=== PATIENT | female | born 1945 | race Caucasian/White ===

== ENCOUNTER → 2023-09-05 11:31 | Outpatient (REF) | payer MEDICARE, BC, SELFPAY ==
[2023-09-05 13:26] LABS: Blood Urea Nitrogen 37 mg/dl (7-17); Calcium 9.3 mg/dl (8.4-10.2); Carbon Dioxide 26 mmol/L (22-30); Chloride 93 mmol/L (98-107); Glucose 87 mg/dl (70-99); Potassium 4.4 mmol/L (3.5-5.1); Sodium 126 mmol/L (135-145); eGFR > 60.00
== END ==
LOC: OLABLV 11:31
PROVIDERS: ATTENDING PHYSICIAN Specialist; FAMILY PHYSICIAN Family Medicine
DX: E87.1 Hypo-osmolality and hyponatremia (principal)
CPT/HCPCS: 80048

== ENCOUNTER → 2023-09-22 08:46 | Outpatient (REF) | payer MEDICARE, BC, SELFPAY | LOC: PAVMRI 08:46 | PROVIDERS: ATTENDING PHYSICIAN Physician Assistant Surgical | DX: M47.812 Spondylosis without myelopathy or radiculopathy, cervical region (principal) | CPT/HCPCS: 72141 ==

== ENCOUNTER → 2023-10-03 09:34 | Outpatient (REF) | payer MEDICARE, BC, OTHER, SELFPAY ==
[2023-10-03 12:26] LABS: Blood Urea Nitrogen 36 mg/dl (7-17); Calcium 9.1 mg/dl (8.4-10.2); Carbon Dioxide 29 mmol/L (22-30); Chloride 95 mmol/L (98-107); Glucose 89 mg/dl (70-99); Potassium 4.5 mmol/L (3.5-5.1); Sodium 129 mmol/L (135-145); eGFR > 60.00
== END ==
LOC: OLABLV 09:34
PROVIDERS: ATTENDING PHYSICIAN Physician Assistant Surgical; FAMILY PHYSICIAN Family Medicine; REFERRING PHYSICIAN Specialist
DX: M25.512 Pain in left shoulder (principal); D64.9 Anemia, unspecified; E87.1 Hypo-osmolality and hyponatremia; I10 Essential (primary) hypertension
CPT/HCPCS: 36415; 73030; 80048

== ENCOUNTER → 2023-10-08 10:31 | Outpatient (REF) | payer MEDICARE, BC, OTHER, SELFPAY ==
[2023-10-08 11:05] LABS: C-Reactive Protein < 5.00 mg/L (0.0-10.00)
[2023-10-08 11:22] LABS: ALT (SGPT) 13 U/L (0-35); AST (SGOT) 23 U/L (14-36); Albumin 3.8 g/dl (3.5-5.0); Alkaline Phosphatase 60 U/L (38-126); Blood Urea Nitrogen 17 mg/dl (7-17); Calcium 8.9 mg/dl (8.4-10.2); Carbon Dioxide 24 mmol/L (22-30); Chloride 95 mmol/L (98-107); Glucose 83 mg/dl (70-99); Potassium 4.4 mmol/L (3.5-5.1); Sodium 126 mmol/L (135-145); Total Bilirubin 0.4 mg/dl (0.2-1.3); Total Protein 6.3 g/dl (6.3-8.2); eGFR > 60.00
[2023-10-08 11:38] LABS: % Basophils 0.6 % (0-2); % Eosinophils 1.4 % (0-6); % Immature Granulocytes 0.7 % (0-0.5); % Lymphocytes 41.8 % (20.5-51.1); % Monocytes 8.3 % (1.7-9.3); % Neutrophils 47.2 % (42.2-75.2); Absolute Basophils 0.1 10^3/uL (0-0.2); Absolute Eosinophils 0.2 10^3/uL (0-0.7); Absolute Immature Granulocytes 0.1 10^3/uL (0-0.05); Absolute Lymphocytes 4.8 10^3/uL (1.2-3.4); Absolute Neutrophils 5.4 10^3/uL (1.4-6.5); Hematocrit 34.1 % (37.0-47.0); Hemoglobin 11.8 g/dL (12.0-16.0); Mean Corp Hgb Conc. 34.6 g/dL (33.0-37.0); Mean Corpuscular Hgb 33.8 pg (27.0-31.0); Mean Corpuscular Volume 97.7 fL (81.0-99.0); Mean Platelet Volume 9.4 fL (7.4-10.4); Nucleated Red Blood Cells % 0 %; Platelet Count 269 10^3/uL (130-400); Red Blood Cell Count 3.49 10^6/uL (4.20-5.40); Red Cell Dist. Width 12.4 % (11.5-14.5); White Blood Cell Count 11.4 10^3/uL (4.8-10.8)
[2023-10-08 12:23] LABS: Erythrocyte Sed Rate 2 mm/hour (0-20)
== END ==
LOC: OLABLV 10:31
PROVIDERS: ATTENDING PHYSICIAN Family Medicine
DX: M06.9 Rheumatoid arthritis, unspecified (principal)
CPT/HCPCS: 36415; 80053; 85025; 85652; 86140

== ENCOUNTER → 2023-10-24 10:35 | Outpatient (REF) | payer BC, OTHER, MEDICARE, SELFPAY | LOC: HWRAD 10:35 | PROVIDERS: ATTENDING PHYSICIAN Specialist; FAMILY PHYSICIAN Family Medicine | DX: M25.512 Pain in left shoulder (principal) | CPT/HCPCS: 73200 ==

== ENCOUNTER → 2023-11-07 11:43 | Outpatient (REF) | payer MEDICARE, BC, OTHER, SELFPAY ==
[2023-11-07 12:43] LABS: % Basophils 0.7 % (0-2); % Eosinophils 1.5 % (0-6); % Immature Granulocytes 0.7 % (0-0.5); % Lymphocytes 39.5 % (20.5-51.1); % Monocytes 9.1 % (1.7-9.3); % Neutrophils 48.5 % (42.2-75.2); Absolute Basophils 0.1 10^3/uL (0-0.2); Absolute Eosinophils 0.2 10^3/uL (0-0.7); Absolute Immature Granulocytes 0.1 10^3/uL (0-0.05); Absolute Lymphocytes 4.5 10^3/uL (1.2-3.4); Absolute Neutrophils 5.5 10^3/uL (1.4-6.5); Mean Corp Hgb Conc. 33.3 g/dL (33.0-37.0); Mean Corpuscular Hgb 32.9 pg (27.0-31.0); Mean Corpuscular Volume 98.6 fL (81.0-99.0); Mean Platelet Volume 9.7 fL (7.4-10.4); Nucleated Red Blood Cells % 0 %; Platelet Count 289 10^3/uL (130-400); Red Blood Cell Count 3.65 10^6/uL (4.20-5.40); Red Cell Dist. Width 12.5 % (11.5-14.5); White Blood Cell Count 11.4 10^3/uL (4.8-10.8)
[2023-11-07 12:51] LABS: ALT (SGPT) 14 U/L (0-35); AST (SGOT) 23 U/L (14-36); Alkaline Phosphatase 60 U/L (38-126); Blood Urea Nitrogen 31 mg/dl (7-17); Calcium 9.7 mg/dl (8.4-10.2); Carbon Dioxide 25 mmol/L (22-30); Chloride 96 mmol/L (98-107); Glucose 87 mg/dl (70-99); Sodium 125 mmol/L (135-145); Total Bilirubin 0.5 mg/dl (0.2-1.3); Total Protein 6.6 g/dl (6.3-8.2); eGFR > 60.00
[2023-11-07 12:55] LABS: C-Reactive Protein < 5.00 mg/L (0.0-10.00)
[2023-11-07 12:59] LABS: Erythrocyte Sed Rate 13 mm/hour (0-20)
== END ==
LOC: OLABLV 11:43
PROVIDERS: ATTENDING PHYSICIAN Internal Medicine Rheumatology; FAMILY PHYSICIAN Family Medicine; REFERRING PHYSICIAN Internal Medicine
DX: E22.2 Syndrome of inappropriate secretion of antidiuretic hormone (principal); G89.29 Other chronic pain; M06.09 Rheumatoid arthritis without rheumatoid factor, multiple sites; M15.0 Primary generalized (osteo)arthritis; M19.012 Primary osteoarthritis, left shoulder; M50.30 Other cervical disc degeneration, unspecified cervical region; M51.36 Other intervertebral disc degeneration, lumbar region; M70.61 Trochanteric bursitis, right hip; M81.0 Age-related osteoporosis without current pathological fracture; R26.89 Other abnormalities of gait and mobility; S32.000D Wedge compression fracture of unspecified lumbar vertebra, subsequent encounter for fracture with routine healing; Z51.81 Encounter for therapeutic drug level monitoring
CPT/HCPCS: 36415; 80053; 85025; 85652; 86140

== ENCOUNTER → 2023-11-21 09:22 | Outpatient (REF) | payer MEDICARE, BC, OTHER, SELFPAY ==
[2023-11-21 12:26] LABS: HDL Cholesterol 79 mg/dl; LDL Cholesterol, Calculated 106 mg/dl; Total Cholesterol 200 mg/dl (50-199); Triglyceride 77 mg/dl (10-149); Very Low Density Lipoprotein 15 mg/dl (0-30)
[2023-11-21 12:56] LABS: TSH 2.35 uIU/ml (0.47-4.68)
== END ==
LOC: OLABLV 09:22
PROVIDERS: ATTENDING PHYSICIAN Family Medicine
DX: E03.9 Hypothyroidism, unspecified (principal)
CPT/HCPCS: 36415; 80061; 84443

== ENCOUNTER → 2023-12-05 12:32 | Outpatient (REF) | payer MEDICARE, BC, OTHER, SELFPAY ==
[2023-12-05 13:03] LABS: Blood Urea Nitrogen 32 mg/dl (7-17); Calcium 9.2 mg/dl (8.4-10.2); Carbon Dioxide 24 mmol/L (22-30); Chloride 99 mmol/L (98-107); Glucose 85 mg/dl (70-99); Potassium 4.2 mmol/L (3.5-5.1); Sodium 128 mmol/L (135-145); eGFR > 60.00
== END ==
LOC: OLABLV 12:32
PROVIDERS: ATTENDING PHYSICIAN Specialist
DX: E87.1 Hypo-osmolality and hyponatremia (principal)
CPT/HCPCS: 36415; 80048

== ENCOUNTER → 2024-02-04 12:17 | Outpatient (REF) | payer MEDICARE, BC, OTHER, SELFPAY | LOC: WDC 12:17 | PROVIDERS: ATTENDING PHYSICIAN Family Medicine | DX: Z12.31 Encounter for screening mammogram for malignant neoplasm of breast (principal) | CPT/HCPCS: 77063; 77067 ==

== ENCOUNTER → 2024-02-06 08:58 | Outpatient (REF) | payer MEDICARE, BC, OTHER, SELFPAY ==
[2024-02-06 09:21] LABS: Blood Urea Nitrogen 29 mg/dl (7-17); Calcium 8.8 mg/dl (8.4-10.2); Carbon Dioxide 26 mmol/L (22-30); Chloride 93 mmol/L (98-107); Glucose 84 mg/dl (70-99); Potassium 4.2 mmol/L (3.5-5.1); Sodium 125 mmol/L (135-145); eGFR > 60.00
== END ==
LOC: OLABLV 08:58
PROVIDERS: ATTENDING PHYSICIAN Specialist
DX: E87.1 Hypo-osmolality and hyponatremia (principal)
CPT/HCPCS: 36415; 80048

== ENCOUNTER → 2024-02-11 12:36 | Outpatient (REF) | payer MEDICARE, BC, SELFPAY ==
[2024-02-11 13:51] LABS: Blood Urea Nitrogen 28 mg/dl (7-17); Calcium 9.3 mg/dl (8.4-10.2); Carbon Dioxide 26 mmol/L (22-30); Chloride 94 mmol/L (98-107); Glucose 83 mg/dl (70-99); Sodium 128 mmol/L (135-145); eGFR > 60.00
== END ==
LOC: OLABLV 12:36
PROVIDERS: ATTENDING PHYSICIAN Specialist
DX: D64.9 Anemia, unspecified (principal); E87.1 Hypo-osmolality and hyponatremia; E78.2 Mixed hyperlipidemia; I10 Essential (primary) hypertension
CPT/HCPCS: 36415; 80048

== ENCOUNTER → 2024-03-26 10:52 | Outpatient (REF) | payer MEDICARE, BC, OTHER, SELFPAY ==
[2024-03-26 12:07] LABS: Blood Urea Nitrogen 26 mg/dl (7-17); Calcium 8.8 mg/dl (8.4-10.2); Carbon Dioxide 26 mmol/L (22-30); Chloride 96 mmol/L (98-107); Glucose 82 mg/dl (70-99); Potassium 4.3 mmol/L (3.5-5.1); Sodium 128 mmol/L (135-145); eGFR > 60.00
== END ==
LOC: OLABLV 10:52
PROVIDERS: ATTENDING PHYSICIAN Hospitalist
DX: E87.1 Hypo-osmolality and hyponatremia (principal)
CPT/HCPCS: 36415; 80048

== ENCOUNTER → 2024-03-31 12:10 | Outpatient (REF) | payer MEDICARE, BC, OTHER, SELFPAY ==
[2024-03-31 13:27] LABS: % Basophils 0.9 % (0-2); % Eosinophils 1.2 % (0-6); % Immature Granulocytes 0.7 % (0-0.5); % Lymphocytes 37.7 % (20.5-51.1); % Monocytes 9.2 % (1.7-9.3); % Neutrophils 50.3 % (42.2-75.2); Absolute Basophils 0.1 10^3/uL (0-0.2); Absolute Eosinophils 0.1 10^3/uL (0-0.7); Absolute Immature Granulocytes 0.1 10^3/uL (0-0.05); Absolute Lymphocytes 3.4 10^3/uL (1.2-3.4); Absolute Monocytes 0.8 10^3/uL (0.1-0.6); Absolute Neutrophils 4.6 10^3/uL (1.4-6.5); Hematocrit 37.7 % (37.0-47.0); Hemoglobin 12.5 g/dL (12.0-16.0); Mean Corp Hgb Conc. 33.2 g/dL (33.0-37.0); Mean Corpuscular Hgb 32.1 pg (27.0-31.0); Mean Corpuscular Volume 96.9 fL (81.0-99.0); Mean Platelet Volume 9.9 fL (7.4-10.4); Nucleated Red Blood Cells % 0 %; Platelet Count 310 10^3/uL (130-400); Red Blood Cell Count 3.89 10^6/uL (4.20-5.40); Red Cell Dist. Width 13.6 % (11.5-14.5); White Blood Cell Count 9.1 10^3/uL (4.8-10.8)
[2024-03-31 13:33] LABS: ALT (SGPT) 12 U/L (0-35); AST (SGOT) 21 U/L (14-36); Albumin 4.5 g/dl (3.5-5.0); Alkaline Phosphatase 69 U/L (38-126); Blood Urea Nitrogen 28 mg/dl (7-17); Calcium 9.8 mg/dl (8.4-10.2); Carbon Dioxide 25 mmol/L (22-30); Chloride 97 mmol/L (98-107); Glucose 94 mg/dl (70-99); Potassium 4.6 mmol/L (3.5-5.1); Sodium 134 mmol/L (135-145); Total Bilirubin 0.6 mg/dl (0.2-1.3); eGFR > 60.00
== END ==
LOC: OLABLV 12:10
PROVIDERS: ATTENDING PHYSICIAN Specialist; FAMILY PHYSICIAN Family Medicine
DX: Z01.818 Encounter for other preprocedural examination (principal); M19.012 Primary osteoarthritis, left shoulder
CPT/HCPCS: 36415; 80053; 85025; 86850; 86900; 86901

== ENCOUNTER → 2024-04-02 10:20 | Outpatient (REF) | payer MEDICARE, BC, OTHER, SELFPAY ==
[2024-04-02 11:17] LABS: Blood Urea Nitrogen 33 mg/dl (7-17); Calcium 9.4 mg/dl (8.4-10.2); Carbon Dioxide 28 mmol/L (22-30); Chloride 97 mmol/L (98-107); Glucose 91 mg/dl (70-99); Potassium 4.3 mmol/L (3.5-5.1); Sodium 132 mmol/L (135-145); eGFR > 60.00
== END ==
LOC: OLABLV 10:20
PROVIDERS: ATTENDING PHYSICIAN Specialist
DX: I10 Essential (primary) hypertension (principal); E87.1 Hypo-osmolality and hyponatremia
CPT/HCPCS: 36415; 80048

== ENCOUNTER → 2024-04-02 16:23 | Outpatient (REF) | payer MEDICARE, BC, OTHER, SELFPAY | LOC: CLAB 16:23 | PROVIDERS: ATTENDING PHYSICIAN Specialist | DX: M19.012 Primary osteoarthritis, left shoulder (principal); Z01.818 Encounter for other preprocedural examination | CPT/HCPCS: 87070 ==

== ENCOUNTER → 2024-04-07 10:42 | Outpatient (REF) | payer MEDICARE, BC, OTHER, SELFPAY ==
[2024-04-07 11:44] LABS: Blood Urea Nitrogen 31 mg/dl (7-17); Calcium 9.4 mg/dl (8.4-10.2); Carbon Dioxide 24 mmol/L (22-30); Chloride 98 mmol/L (98-107); Glucose 90 mg/dl (70-99); Potassium 4.3 mmol/L (3.5-5.1); Sodium 135 mmol/L (135-145); eGFR > 60.00
== END ==
LOC: OLABLV 10:42
PROVIDERS: ATTENDING PHYSICIAN Specialist
DX: E87.1 Hypo-osmolality and hyponatremia (principal)
CPT/HCPCS: 36415; 80048

== ENCOUNTER → 2024-04-09 10:41 | Outpatient (REF) | payer MEDICARE, BC, OTHER, SELFPAY ==
[2024-04-09 13:12] LABS: Blood Urea Nitrogen 34 mg/dl (7-17); Calcium 9.5 mg/dl (8.4-10.2); Carbon Dioxide 31 mmol/L (22-30); Chloride 95 mmol/L (98-107); Glucose 87 mg/dl (70-99); Potassium 4.3 mmol/L (3.5-5.1); Sodium 134 mmol/L (135-145); eGFR > 60.00
== END ==
LOC: OLABLV 10:41
PROVIDERS: ATTENDING PHYSICIAN Specialist
DX: I10 Essential (primary) hypertension (principal); E87.1 Hypo-osmolality and hyponatremia; D64.9 Anemia, unspecified
CPT/HCPCS: 36415; 80048

== ENCOUNTER 2024-04-20 08:18 | Inpatient (IN) | payer MEDICARE, BC, OTHER, SELFPAY ==
[2024-04-14 13:03] VITALS: BMI 35.6
[2024-04-20] VITALS (13 sets, daily range): BP systolic 91–128; BP diastolic 55–78; PULSE 83; O2SAT 94; BMI 35.2
[2024-04-20] MEDS: MOBIC 15 MG PO (08:03)
[2024-04-20] MEDS: TYLENOL 1000 MG PO (08:03)
[2024-04-20] MEDS: NORMOSOL-R/PLASMALYTE-A 1000 IV ×2 (08:10→17:06)
--- NOTE | 2024-04-20 13:15 | PTCARENOTE ---
Received patient from PACU. Patient is s/p L Shoulder replacement. Patient's POA, Yoli, and patient's geriatric day care worker, Shasha, both at bedside. Completed admission assessment with both present.
[2024-04-20] MEDS: LIPITOR PO (14:46)
[2024-04-20] MEDS: CYMBALTA DELAYED RELEASE PO (14:46)
[2024-04-20] MEDS: METAMUCIL, KONSYL PO (14:47)
[2024-04-20] MEDS: MIRALAX PO (14:47)
[2024-04-20] MEDS: PROTONIX PO (14:48)
[2024-04-20] MEDS: RESTASIS 0.05% OPHTHALMIC EMULSION 1 DROPS BOTH EYES (14:48)
[2024-04-20] MEDS: ProAmatine 5 MG PO (17:06)
[2024-04-20] MEDS: TYLENOL 650 MG PO ×2 (17:06→20:28)
[2024-04-20] MEDS: ASPIRIN 325 MG PO (17:07)
[2024-04-20] MEDS: ANCEF 5 IV (17:07)
[2024-04-20] MEDS: AZULFIDINE 1000 MG PO (20:29)
[2024-04-20] MEDS: COLACE 100 MG PO (20:29)
[2024-04-20] MEDS: SENOKOT 17.2 MG PO (20:29)
[2024-04-20] MEDS: TORADOL 15 MG IV (20:30)
[2024-04-20] MEDS: BACTROBAN 2% OINTMENT 1 APPLIC NASAL (20:30)
[2024-04-20] MEDS: NEURONTIN 600 MG PO (22:08)
[2024-04-20] MEDS: PEPCID 20 MG PO (22:09)
[2024-04-20] MEDS: KLONOPIN 0.5 MG PO (22:09)
[2024-04-21] MEDS: ANCEF 5 IV (02:11)
[2024-04-21] MEDS: TYLENOL PO (02:58)
--- NOTE | 2024-04-21 03:00 | DOWNTIME ---
There was a Handpressions Client [employer]ator Downtime on 03/24/2024 from 0100 to 03/24/2024 at 0252. Downtime documentation of patient's care, including medication administrations, has been reconciled in the electronic record per guidelines. Refer to the
patient's paper chart under the miscellaneous tab to see printed paper medication records and downtime forms.
[2024-04-21 03:30] VITALS: BP 114/62
[2024-04-21] MEDS: NORMOSOL-R/PLASMALYTE-A 1000 IV (03:33)
[2024-04-21] MEDS: TYLENOL 650 MG PO ×4 (03:33→16:35)
[2024-04-21] MEDS: RESTASIS 0.05% OPHTHALMIC EMULSION 1 DROPS BOTH EYES (03:35)
[2024-04-21 06:00] VITALS: BMI 33.3
--- NOTE | 2024-04-21 06:18 | W.PN.ORTHO ---
Today's Communication / Plan
-
79-year-old female POD 1 Left Reverse Total Shoulder Replacement on 04/20/[address] Orozco.
- Sling to LUE x 2 weeks from DOS.
- NWB LUE.
- Encourage digital ROM.
- ASA 325mg once daily x 4 weeks for DVT prophylaxis.
- Aquacel dressing to remain intact for 7 to 10 days.
- F/U as outpatient 2 weeks post-operatively.
- Tentative plan for D/C to SNF ([facility]) today pending bladder scan / able to successfully void.
Assessment
.
Distal Motor Intact: Yes
Dressing:
Clean, dry and intact.
Assessment:
POD #1 Left Reverse Total Shoulder Replacement
Plan
.
Surgery / Date: 04/20/2024 Left Reverse Total Shoulder Replacement
DVT Prophylaxis: Aspirin
Activity:
Out of bed.
PT/OT
Discharge Plan: SNF
Discharge Information:
Appreciate CM
Subjective
.
.:
Patient resting comfortably. She reports difficulty with urination and has not had a bowel movement yet. She was straight cathed yesterday evening (straight cath output 1250). She reports that her pain is well-controlled. She reports some
residual numbness in her hand.
Vital Signs and Labs
.
Vital Signs and Labs:
Temp Pulse Resp BP Pulse Ox
97.8 F 85 17 114/62 92
04/21/24 03:30 04/21/24 03:30 04/21/24 03:30 04/21/24 03:30 04/21/24 03:30
Physical Exam
-
Physical examination of the left upper extremity reveals sling intact. Aquacel dressing clean, dry, and intact. Sensation intact to light touch over the axillary nerve distribution. Capillary refills less than 2 seconds. Shoulder ROM deferred.
--- NOTE | 2024-04-21 06:41 | W.DS.TRANS ---
DC Summary - Analytical Lab Technician
-
Discharge Instructions:
Sleep Apnea Risk Intermediate
Discharge Diagnosis/Procedures Left Reverse Total Shoulder Replacement
Diet As tolerated
Activity No strenuous activity
Additional Activity NWB LUE. Sling to LUE.
Driving Restrictions Not until seen by your Dr
Bathing Restrictions OK to Shower
Instructions:
Stand-Alone Forms:
Changes to Home Medications: No
Discharge Medications:
DC Medications w/original date entered in [employer]
atorvastatin 20 mg tablet 20 mg PO DAILY High cholesterol 01/12/22
calcium carbonate 600 mg PO BID Supplement 01/12/22
cholecalciferol (vitamin D3) 25 mcg (1,000 unit) capsule (Vitamin D3) 1,000 unit PO DAILY Supplement 01/12/22
clonazepam 0.5 mg tablet 0.5 mg PO HS Mental Health/Anxiety/SLEEP 01/12/22
duloxetine 30 mg capsule,delayed release 30 mg PO DAILY Mental Health/Anxiety 01/12/22
metoprolol succinate 25 mg tablet,extended release 24 hr (Toprol XL) 25 mg PO HS Blood pressure 01/12/22
psyllium husk (aspartame) 3.4 gram oral powder packet (Metamucil Fiber Singles) 1 packet PO Q48H Constipation 01/12/22
urea 15 gram oral powder packet (Ure-Na) 1 packet PO BID Fluid retention/Swelling 01/12/22
potassium chloride 20 mEq tablet,extended release(part/cryst) 20 meq PO DAILY 15 days ##15 01/16/22
Probiotic 1 cap PO DAILY 04/14/24
Sodium Flouride 1 ml PO QID 04/14/24
acetaminophen 500 mg tablet 1,000 mg PO Q6H PRN PAIN 04/14/24
benzonatate 200 mg capsule 200 mg PO TID PRN cough 04/14/24
calcium carbonate 500 mg PO Q4H PRN HEARTBURN 04/14/24
cyclosporine 0.05 % eye drops in a dropperette (Restasis) 1 drp ophthalmic (eye) Q12H 04/14/24
estradiol 0.01% (0.1 mg/gram) vaginal cream 1 g vaginal .TWICEWEEKLY 04/14/24
famotidine 10 mg tablet 10 mg PO BID PRN dyspepsia 04/14/24
fluoride (sodium) 1.1 % dental cream (PreviDent 5000 Plus) 1 applic dental HS 04/14/24
folic acid 1 mg tablet 1 mg PO DAILY 04/14/24
furosemide 40 mg tablet (Lasix) 40 mg PO DAILY 04/14/24
gabapentin 600 mg tablet 1,800 mg PO HS 04/14/24
guaifenesin 100 mg/5 mL oral liquid 100 mg PO Q6H PRN cough 04/14/24
hydrocortisone 1 % topical cream 1 applic topical BID PRN PRURITIS 04/14/24
lansoprazole 30 mg capsule,delayed release 30 mg PO DAILY 04/14/24
lidocaine 4 % topical cream 1 applic topical DAILY PRN PAIN 04/14/24
lidocaine 5 % topical patch 1 patch topical DAILY PRN LOWER BACK PAIN 04/14/24
loperamide 2 mg tablet 2 mg PO Q4H PRN DIARRHEA 04/14/24
loratadine 10 mg tablet 10 mg PO DAILY 04/14/24
lubiprostone 24 mcg capsule 24 mcg PO BID 04/14/24
mecobalamin (vitamin B12) 1,000 mcg chewable tablet (B12 Active) 1,000 mcg PO DAILY 04/14/24
methylprednisolone 4 mg tablet 4 mg PO DAILY 04/14/24
mupirocin 2 % topical ointment 1 applic topical BID 04/14/24
polyethylene glycol 3350 17 gram oral powder packet 17 g PO DAILY PRN CONSTIPATION 04/14/24
sodium phosphates 19 gram-7 gram/118 mL enema (Fleet Enema) 118 ml [place] DAILY PRN CONSTIPATION 04/14/24
sulfasalazine 500 mg tablet 1 g PO BID 04/14/24
vibegron 75 mg tablet (Gemtesa) 75 mg PO DAILY 04/14/24
aspirin 325 mg tablet 325 mg PO DAILY Blood clot prevention/tx 4 weeks #28 tabs 04/21/24
docusate sodium 100 mg capsule 100 mg PO BID Constipation #30 caps 04/21/24
meloxicam 15 mg tablet 15 mg PO DAILY Anti-inflammatory 2 weeks #14 tabs 04/21/24
oxycodone 5 mg tablet 5 mg PO Q4HPRN PRN moderate pain #20 tabs 04/21/24
Home Medication Changes
Pending Results: Yes
Additional Pending Results:
Bladder Scan / Able to successfully void
Total time spent discharging patient (in min): 45 Minutes
[2024-04-21 07:20] VITALS: BP 115/70
[2024-04-21] MEDS: COLACE 100 MG PO (08:19)
[2024-04-21] MEDS: MOBIC 15 MG PO (08:20)
[2024-04-21] MEDS: SENOKOT 17.2 MG PO (08:20)
[2024-04-21] MEDS: CYMBALTA DELAYED RELEASE 30 MG PO (08:20)
[2024-04-21] MEDS: CLARITIN 10 MG PO (08:20)
[2024-04-21] MEDS: VISBIOME 1 CAP PO (08:20)
[2024-04-21] MEDS: PROTONIX 20 MG PO (08:20)
[2024-04-21] MEDS: AZULFIDINE 1000 MG PO (08:20)
[2024-04-21] MEDS: ASPIRIN 325 MG PO (08:20)
[2024-04-21] MEDS: LASIX 20 MG PO (08:20)
[2024-04-21] MEDS: LIPITOR 20 MG PO (08:20)
[2024-04-21] MEDS: MIRALAX 17 GRAMS PO (08:20)
[2024-04-21] MEDS: METAMUCIL, KONSYL 1 PACKET PO (08:21)
[2024-04-21] MEDS: TORADOL 15 MG IV (08:21)
[2024-04-21] MEDS: BACTROBAN 2% OINTMENT 1 APPLIC NASAL (08:21)
--- NOTE | 2024-04-21 10:35 | CM ---
Addendum entered by Katie Burgos 04/21/24 10:49:
Update to healthcare PO/Shasha Gramajo
IMM verbally reviewed- copy emailed to [email or web address]
Transport forms on chart
[employer] to arrange for BLS
Discharge Disposition- [facility] via ambulance
Phone- [phone] Fax- [phone]
Original Note:
CM spoke with Emily[facility]
Pt is a PCU resident and arrangements were made [employer] for placement at [facility] on dc
Confirmed bed availability with Miguelina/admissions
She noted arrangements were made for private payment with [facility] [employer] as pt without qualifying stay
Reviewed with ortho/STANISLAV Weber
Pt ready for dc today pending pt able to void and seen by therapy
PASRR completed and referral sent to [facility] via [facility]
Discharge Disposition- [facility]
Phone- [phone] Fax- [phone]
[2024-04-21 11:00] VITALS: BP 104/62; PULSE 86
[2024-04-21 11:13] VITALS: BP 104/62
[2024-04-21] MEDS: NORMOSOL-R/PLASMALYTE-A IV (13:22)
[2024-04-21] MEDS: RESTASIS 0.05% OPHTHALMIC EMULSION BOTH EYES (14:40)
[2024-04-21 15:31] VITALS: BP 112/58
[2024-04-21] MEDS: ROXICODONE 5 MG PO (16:35)
[2024-04-22 14:18] LABS: Hepatitis C Antibody Negative (Negative)
== END 2024-04-21 16:45 | DRG 483 ==
LOC: 2 SOUTH 08:18
PROVIDERS: ADMITTING PHYSICIAN Specialist
PROC: 0RRK00Z Replacement of Left Shoulder Joint with Reverse Ball and Socket Synthetic Substitute, Open Approach (ICD-10-PCS; 2024-04-20)
DX: M19.012 Primary osteoarthritis, left shoulder (principal); M06.9 Rheumatoid arthritis, unspecified; F32.A Depression, unspecified; I10 Essential (primary) hypertension; F41.9 Anxiety disorder, unspecified; E78.5 Hyperlipidemia, unspecified; K21.9 Gastro-esophageal reflux disease without esophagitis; G89.4 Chronic pain syndrome; Z79.52 Long term (current) use of systemic steroids; Z79.899 Other long term (current) drug therapy; Z87.19 Personal history of other diseases of the digestive system; Z88.2 Allergy status to sulfonamides; Z91.041 Radiographic dye allergy status; Z96.653 Presence of artificial knee joint, bilateral; Z82.49 Family history of ischemic heart disease and other diseases of the circulatory system
CPT/HCPCS: 73020; 86803; 87070; 97166; 97530; 97535; C1713; C1776

== ENCOUNTER → 2024-04-27 11:05 | Outpatient (REF) | payer OTHER, MEDICARE, SELFPAY ==
[2024-04-27 12:32] LABS: Hematocrit 34.4 % (37.0-47.0); Hemoglobin 11.2 g/dL (12.0-16.0); Mean Corp Hgb Conc. 32.6 g/dL (33.0-37.0); Mean Corpuscular Hgb 30.9 pg (27.0-31.0); Mean Platelet Volume 9.7 fL (7.4-10.4); Platelet Count 340 10^3/uL (130-400); Red Blood Cell Count 3.62 10^6/uL (4.20-5.40); Red Cell Dist. Width 13.2 % (11.5-14.5)
[2024-04-27 13:42] LABS: Blood Urea Nitrogen 23 mg/dl (7-17); Calcium 9.5 mg/dl (8.4-10.2); Carbon Dioxide 29 mmol/L (22-30); Chloride 94 mmol/L (98-107); Glucose 98 mg/dl (70-99); Potassium 4.9 mmol/L (3.5-5.1); Sodium 133 mmol/L (135-145); eGFR > 60.00
== END ==
LOC: OLABP 11:05
PROVIDERS: ATTENDING PHYSICIAN Family Medicine
DX: K76.0 Fatty (change of) liver, not elsewhere classified (principal); E87.1 Hypo-osmolality and hyponatremia; I47.10 Supraventricular tachycardia, unspecified; I10 Essential (primary) hypertension; Z47.1 Aftercare following joint replacement surgery; M19.012 Primary osteoarthritis, left shoulder; Z96.612 Presence of left artificial shoulder joint; M06.9 Rheumatoid arthritis, unspecified; K21.9 Gastro-esophageal reflux disease without esophagitis
CPT/HCPCS: 36415; 80048; 85027

== ENCOUNTER → 2024-04-30 09:33 | Outpatient (REF) | payer OTHER, MEDICARE, BC, SELFPAY ==
[2024-04-30 10:30] LABS: Hematocrit 30.2 % (37.0-47.0); Mean Corp Hgb Conc. 33.1 g/dL (33.0-37.0); Mean Corpuscular Hgb 31.2 pg (27.0-31.0); Mean Corpuscular Volume 94.1 fL (81.0-99.0); Mean Platelet Volume 9.2 fL (7.4-10.4); Platelet Count 316 10^3/uL (130-400); Red Blood Cell Count 3.21 10^6/uL (4.20-5.40); Red Cell Dist. Width 13.3 % (11.5-14.5); White Blood Cell Count 8.3 10^3/uL (4.8-10.8)
[2024-04-30 10:36] LABS: Blood Urea Nitrogen 28 mg/dl (7-17); Calcium 9.3 mg/dl (8.4-10.2); Carbon Dioxide 29 mmol/L (22-30); Chloride 98 mmol/L (98-107); Glucose 84 mg/dl (70-99); Potassium 4.4 mmol/L (3.5-5.1); Sodium 135 mmol/L (135-145); eGFR > 60.00
== END ==
LOC: OLABP 09:33
PROVIDERS: ATTENDING PHYSICIAN Family Medicine
DX: K76.0 Fatty (change of) liver, not elsewhere classified (principal); E87.1 Hypo-osmolality and hyponatremia; I47.10 Supraventricular tachycardia, unspecified; I10 Essential (primary) hypertension; M19.012 Primary osteoarthritis, left shoulder; Z96.612 Presence of left artificial shoulder joint; M06.9 Rheumatoid arthritis, unspecified; K21.9 Gastro-esophageal reflux disease without esophagitis
CPT/HCPCS: 36415; 80048; 85027

== ENCOUNTER → 2024-06-22 11:28 | Outpatient (REF) | payer MEDICARE, BC, SELFPAY | LOC: OLABP 11:28 | PROVIDERS: ATTENDING PHYSICIAN Family Medicine | DX: R19.7 Diarrhea, unspecified (principal) | CPT/HCPCS: 36415; 87045; 87046; 87324; 87328; 87329; 87427; 87449; 89055 ==

== ENCOUNTER → 2024-07-14 10:22 | Outpatient (REF) | payer MEDICARE, BC, SELFPAY ==
[2024-07-14 11:20] LABS: % Basophils 0.8 % (0-2); % Eosinophils 3.8 % (0-6); % Immature Granulocytes 0.4 % (0-0.5); % Lymphocytes 41.5 % (20.5-51.1); % Monocytes 8.2 % (1.7-9.3); % Neutrophils 45.3 % (42.2-75.2); Absolute Basophils 0.1 10^3/uL (0-0.2); Absolute Eosinophils 0.3 10^3/uL (0-0.7); Absolute Lymphocytes 3.5 10^3/uL (1.2-3.4); Absolute Monocytes 0.7 10^3/uL (0.1-0.6); Absolute Neutrophils 3.9 10^3/uL (1.4-6.5); Hematocrit 34.8 % (37.0-47.0); Mean Corp Hgb Conc. 31.6 g/dL (33.0-37.0); Mean Corpuscular Hgb 29.4 pg (27.0-31.0); Mean Platelet Volume 9.4 fL (7.4-10.4); Nucleated Red Blood Cells % 0 %; Platelet Count 256 10^3/uL (130-400); Red Blood Cell Count 3.74 10^6/uL (4.20-5.40); Red Cell Dist. Width 14.2 % (11.5-14.5); White Blood Cell Count 8.5 10^3/uL (4.8-10.8)
[2024-07-14 12:47] LABS: Erythrocyte Sed Rate 13 mm/hour (0-20)
[2024-07-14 15:11] LABS: ALT (SGPT) 13 U/L (0-35); AST (SGOT) 18 U/L (14-36); Albumin 3.6 g/dl (3.5-5.0); Alkaline Phosphatase 62 U/L (38-126); Blood Urea Nitrogen 38 mg/dl (7-17); Calcium 9.3 mg/dl (8.4-10.2); Carbon Dioxide 28 mmol/L (22-30); Chloride 98 mmol/L (98-107); Glucose 88 mg/dl (70-99); Potassium 4.4 mmol/L (3.5-5.1); Sodium 133 mmol/L (135-145); Total Bilirubin 0.2 mg/dl (0.2-1.3); Total Protein 6.1 g/dl (6.3-8.2); eGFR > 60.00
[2024-07-16 08:04] LABS: TSH Reflex To Free T4 3.58 uIU/ml (0.47-4.68)
== END ==
LOC: OLABLV 10:22
PROVIDERS: ATTENDING PHYSICIAN Specialist; REFERRING PHYSICIAN Internal Medicine
DX: E87.1 Hypo-osmolality and hyponatremia (principal); M06.09 Rheumatoid arthritis without rheumatoid factor, multiple sites; Z51.81 Encounter for therapeutic drug level monitoring
CPT/HCPCS: 36415; 80053; 84443; 85025; 85652; 86140

== ENCOUNTER → 2024-07-15 23:00 | Outpatient (REF) | payer MEDICARE, BC, SELFPAY | LOC: OLABLV 23:00 | PROVIDERS: ATTENDING PHYSICIAN Nurse Practitioner | DX: R19.7 Diarrhea, unspecified (principal) | CPT/HCPCS: 82653; 83993 ==

== ENCOUNTER → 2024-08-25 08:15 | Outpatient (REF) | payer MEDICARE, BC, SELFPAY ==
[2024-08-25 17:38] LABS: Urine Albumin Trace (Neg - Trace); Urine Bilirubin Negative (Negative); Urine Character Clear (Clear); Urine Color Yellow; Urine Glucose Negative (Negative); Urine Ketone Negative (Negative); Urine Leukocyte Negative (Negative); Urine Nitrite Negative (Negative); Urine Occult Blood Negative (Negative); Urine Urobilinogen Negative (Neg - 1+)
== END ==
LOC: OLABLV 08:15
PROVIDERS: ATTENDING PHYSICIAN Family Medicine
DX: N39.0 Urinary tract infection, site not specified (principal)
CPT/HCPCS: 81003

== ENCOUNTER → 2024-08-27 10:25 | Outpatient (REF) | payer MEDICARE, BC, SELFPAY | LOC: MRI 10:25 | PROVIDERS: ATTENDING PHYSICIAN Specialist; FAMILY PHYSICIAN Family Medicine | DX: M54.14 Radiculopathy, thoracic region (principal) | CPT/HCPCS: 72146 ==

== ENCOUNTER 2024-08-29 09:46 | Emergency (ER) | payer MEDICARE, BC, SELFPAY ==
[2024-08-29 10:07] VITALS: BP 163/103
[2024-08-29 12:00] VITALS: BP 154/97
--- NOTE | 2024-08-29 15:33 | ED.GENMED ---
History of Present Illness
General
Chief Complaint: Fall
Source: patient
Exam Limitations: none
Time Seen by Provider: 08/29/24 11:53
Nursing documentation reviewed up to this point in time: agreed with
History of Present Illness
History of Present Illness:
79-year-old female past medical history of hypertension hyperlipidemia presenting to the emergency department today with concerns of falling backward after losing her footing earlier today hit her upper back and the back of her head. Denies loss of
consciousness otherwise feels well at this point. Denies any numbness or weakness.
Past History
Past History
ED Past Medical History: Arrthythmia (Per pt- SVT on Digoxin), Psychiatric (Depression, anxiety) and Other (RA)
ED Past Surgical History: Orthopedic and Other
Social History
Living: assisted
Review of Systems
Review of Systems
Allergies reviewed?: Yes
All Other Systems: ROS reviewed and negative except as documented in HPI and ROS
Phy Exam
Physical Exam
Physical Exam:
GENERAL: Alert , in no apparent distress
EYE: pupils equal and reactive
NECK: Supple, no significant adenopathy.
ENT: o/p clr, mmm.
CARDIAC: Regular rate and rhythm .
LUNGS: Clear breath sounds bilaterally, no acute respiratory distress, no wheezes/rales/rhonchi
ABDOMEN: Soft, without focal tenderness, no r/g, no cvat
NEUROLOGICAL: Alert and oriented, no focal neuro deficits
SKIN: Warm and dry, skin intact.
MUSCULOSKELETAL: No edema, well perfused.
PSYCH: Normal and appropriate interaction.
Course
Orders/Labs/Results
Orders:
Orders
08/29/24 12:02
CT Cervical Spine W/o Iv Contr Urgent
Comment:
Reason For Exam: fall hit back of head and neck
CT Head W/o Iv Contrast Urgent
Comment:
Reason For Exam: fall hit back of head and neck
Vital Signs
Initial and Last Documented VS:
Initial Vital Signs
Temp Pulse Resp BP Pulse Ox
98.8 F 89 18 163/103 97
08/29/24 10:07 08/29/24 10:07 08/29/24 10:07 08/29/24 10:07 08/29/24 10:07
Last Documented Vital Signs
Temp Pulse Resp BP Pulse Ox
98.8 F 81 16 154/97 98
08/29/24 10:07 08/29/24 12:00 08/29/24 12:00 08/29/24 12:00 08/29/24 12:00
MDM/Problems Addressed
MDM/Problems Addressed:
79-year-old female presenting to the emergency department today after a ground-level fall hitting back of her head also having some mild pain to her neck. No reproducible discomfort. With patient's description of the symptoms CT scan of the head
and neck performed without evidence of acute pathology stable for discharge. Return precautions given.
*Critical Care Note
Total Time (30-74mins, 75-104mins- exclusive of procedures): Not Applicable
ED Attending Note
-
Portions of this chart may have been created with voice recognition software.� Occasional wrong word or��sound alike� substitutions may have occurred due to the inherent limitations of voice recognition software.
Discharge Plan
Departure
Patient Disposition: Home (Routine Discharge)
Date of Disposition: 08/29/24
Time of Disposition: 15:34
Patient with high blood pressure during this ER visit?: No
Condition: Good
Covid-19: Not Applicable
Discharge Problem:
Fall
Instructions: Preventing falls in adults
Prescriptions:
No Action
atorvastatin 20 MG tablet
20 mg PO DAILY
clonazepam 0.5 MG tablet
0.5 mg PO HS
calcium carbonate 600 MG tablet
600 mg PO BID
metoprolol succinate [Toprol XL] 25 MG tablet extended release 24 hr
25 mg PO HS
cholecalciferol (vitamin D3) [Vitamin D3] 1,000 UNIT capsule
1,000 unit PO DAILY
duloxetine 30 MG capsule,delayed release(DR/EC)
30 mg PO DAILY
Metamucil Fiber Singles 1 PACKET powder in packet
1 packet PO Q48H
Ure-Na 15 GM powder in packet
1 packet PO BID
furosemide [Lasix] 40 mg Tablet
40 mg PO DAILY
gabapentin 600 mg Tablet
1,800 mg PO HS
sulfasalazine 500 mg Tablet
1 g PO BID
famotidine 10 mg Tablet
10 mg PO BID PRN (Reason: dyspepsia)
polyethylene glycol 3350 17 gram Powder In Packet
17 g PO DAILY PRN (Reason: CONSTIPATION)
benzonatate 200 mg Capsule
200 mg PO TID PRN (Reason: cough)
lidocaine 4 % Cream
1 applic TOPICAL DAILY PRN (Reason: PAIN)
loperamide 2 mg Tablet
2 mg PO Q4H PRN (Reason: DIARRHEA)
methylprednisolone 4 mg Tablet
4 mg PO DAILY
acetaminophen 500 mg Tablet
1,000 mg PO Q6H PRN (Reason: PAIN)
guaifenesin 100 mg/5 mL Liquid
100 mg PO Q6H PRN (Reason: cough)
hydrocortisone 1 % Cream
1 applic TOPICAL BID PRN (Reason: PRURITIS)
lansoprazole 30 mg Capsule,Delayed Release(Dr/Ec)
30 mg PO DAILY
lidocaine 5 % Adhesive Patch,Medicated
1 patch TOPICAL DAILY PRN (Reason: LOWER BACK PAIN)
Fleet Enema 19-7 gram/118 mL Enema
118 ml [place] DAILY PRN (Reason: CONSTIPATION)
folic acid 1 mg Tablet
1 mg PO DAILY
calcium carbonate 500 mg calcium (1,250 mg) Tablet,Chewable
500 mg PO Q4H PRN (Reason: HEARTBURN)
mupirocin 2 % Ointment
1 applic TOPICAL BID
estradiol 0.01 % (0.1 mg/gram) Cream
1 g VAGINAL .TWICEWEEKLY
loratadine 10 mg Tablet
10 mg PO DAILY
cyclosporine [Restasis] 0.05 % Dropperette
1 drp OPHTHALMIC (EYE) Q12H
fluoride (sodium) [PreviDent 5000 Plus] 1.1 % Cream
1 applic DENTAL HS
lubiprostone 24 mcg Capsule
24 mcg PO BID
mecobalamin (vitamin B12) [B12 Active] 1,000 mcg Tablet,Chewable
1,000 mcg PO DAILY
Gemtesa 75 mg Tablet
75 mg PO DAILY
Probiotic
1 cap PO DAILY
Sodium Flouride 0.5 MG/ML
1 ml PO QID
aspirin 325 mg Tablet
325 mg PO DAILY 28 Days Qty: 28 0RF
docusate sodium 100 mg Capsule
100 mg PO BID Qty: 30 0RF
oxycodone 5 mg Tablet
5 mg PO Q4HPRN PRN (Reason: moderate pain) Qty: 20 0RF
meloxicam 15 mg Tablet
15 mg PO DAILY 14 Days Qty: 14 0RF
potassium chloride 20 MEQ tablet,ER particles/crystals
20 meq PO DAILY
Referrals:
Aparna Okeefe MD [Family Provider] -
Activity Restrictions/Additional Instructions:
You came to the emergency department today with concerns after a fall. Here you had a reassuring assessment with normal CT scan of the head and neck. Please follow closely as an outpatient with your primary care doctor. Return to the emergency
department for any worsening, new or concerning symptoms.
Interventions
Interventions:
*Risk Screen - Suicide Last Done: 08/29/24 10:07
*General Assessment Last Done: 08/29/24 10:07
*Neglect/Abuse Screening Last Done: 08/29/24 10:07
ED- Fall Risk Assessment Last Done: 08/29/24 12:00
*ED COVID-19 Vaccine History Last Done: 08/29/24 12:00
ED-Musculoskeletal Assessment Last Done: 08/29/24 12:00
ED- Neurological Assessment Last Done: 08/29/24 12:00
ED-Skin Assessment Last Done: 08/29/24 12:00
Discharge Date and Time
Print Language: [place]
[2024-08-29 16:00] VITALS: BP 155/76
== END 2024-08-29 16:10 | disposition home or self-care (01) ==
LOC: EMR 09:46
PROVIDERS: EMERGENCY PHYSICIAN Emergency Medicine; FAMILY PHYSICIAN Family Medicine
DX: S09.90XA Unspecified injury of head, initial encounter (principal); M54.2 Cervicalgia; W18.39XA Other fall on same level, initial encounter; I10 Essential (primary) hypertension; E78.5 Hyperlipidemia, unspecified
CPT/HCPCS: 99284; 70450; 72125

== ENCOUNTER 2024-09-03 15:56 | Emergency (ER) | payer MEDICARE, BC, OTHER, SELFPAY ==
[2024-09-03 16:07] VITALS: BP 152/94
[2024-09-03 16:37] LABS: % Basophils 0.4 % (0-2); % Eosinophils 0.3 % (0-6); % Immature Granulocytes 0.7 % (0-0.5); % Monocytes 7.3 % (1.7-9.3); % Neutrophils 73.3 % (42.2-75.2); Absolute Basophils 0.1 10^3/uL (0-0.2); Absolute Immature Granulocytes 0.1 10^3/uL (0-0.05); Absolute Monocytes 0.8 10^3/uL (0.1-0.6); Absolute Neutrophils 8.3 10^3/uL (1.4-6.5); Hematocrit 41.8 % (37.0-47.0); Hemoglobin 13.6 g/dL (12.0-16.0); Mean Corp Hgb Conc. 32.5 g/dL (33.0-37.0); Mean Corpuscular Hgb 29.8 pg (27.0-31.0); Mean Corpuscular Volume 91.5 fL (81.0-99.0); Mean Platelet Volume 8.5 fL (7.4-10.4); Nucleated Red Blood Cells % 0 %; Platelet Count 371 10^3/uL (130-400); Red Blood Cell Count 4.57 10^6/uL (4.20-5.40); Red Cell Dist. Width 15.7 % (11.5-14.5); White Blood Cell Count 11.4 10^3/uL (4.8-10.8)
[2024-09-03 16:55] LABS: ALT (SGPT) 16 U/L (0-35); AST (SGOT) 22 U/L (14-36); Albumin 5.2 g/dl (3.5-5.0); Alkaline Phosphatase 183 U/L (38-126); Blood Urea Nitrogen 40 mg/dl (7-17); Calcium 10.1 mg/dl (8.4-10.2); Carbon Dioxide 28 mmol/L (22-30); Chloride 90 mmol/L (98-107); Glucose 110 mg/dl (70-99); Potassium 4.6 mmol/L (3.5-5.1); Sodium 130 mmol/L (135-145); Total Bilirubin 1.4 mg/dl (0.2-1.3); Total Protein 8.7 g/dl (6.3-8.2); Troponin I < 0.012 ng/ml; eGFR > 60.00
[2024-09-03 22:44] VITALS: BP 105/72
[2024-09-03 23:01] VITALS: BP 136/93
--- NOTE | 2024-09-03 23:01 | ED.GENMED ---
History of Present Illness
General
Chief Complaint: Chest Pain
Source: patient
Exam Limitations: none
Time Seen by Provider: 09/03/24 22:46
History of Present Illness
History of Present Illness:
This is a 79 year old female that comes in with c/o chest pain. States that she started with pain around 3pm today and that her carotids in her neck felt tight. States that the pain was constant but is gone at this time. Denies any fever, chills,
SOB, abd pain, nausea, vomiting, diarrhea, headache, dizziness, urinary burning.
Past History
Past History
ED Past Medical History: Arrthythmia (Per pt- SVT on Digoxin), Cancer (Uterine cancer), GERD, HTN, Hypercholesterolemia, Psychiatric (Depression, anxiety) and Other (RA, Back and neck pain, Overactive bladder, )
ED Past Surgical History: Appendectomy, Orthopedic (Sim bunion repair, Sim knee replacement, Right foot Pins, Bilateral shoulder replacement, ), Tonsilectomy (and adenoids) and Other
Social History
Tobacco: Former smoker
Alcohol: Daily (Wine 1 glass)
Drug: None
Personal:
Living: correction
Review of Systems
Review of Systems
All Other Systems: ROS reviewed and negative except as documented in HPI and ROS
Constitutional: Reports no symptoms; Denies fever or chills
EENT: Reports no symptoms
Respiratory: Reports no symptoms; Denies cough or trouble breathing
Cardiac: Reports chest pain
ABD/GI: Reports no symptoms; Denies abdominal pain, nausea, vomiting or diarrhea
: Reports no symptoms; Denies dysuria, frequency or urgency
Musculoskeletal: Reports no symptoms
Skin: Reports no symptoms
Neurological: Reports no symptoms; Denies dizzy or headache
Psychiatric: Reports no symptoms
Phy Exam
General Physical Exam
General Presentation: no apparent distress
General age: appears stated age
General Skin: warm and dry
General Habitus: elderly
General Mental: alert
General Hydration: appears well hydrated
ENT Exam
ENT Exam: TM's normal, pharynx normal and neck supple
Eye Exam
Eye Exam: EOMI
Cardiovascular Exam
Cardiovascular Exam: no edema, normal peripheral pulses and tachycardia
Pulmonary Exam
Pulmonary Exam: lungs clear, no respiratory distress, no rales, chest non tender, no crackles, no rhonchi and no cough
Gastrointestinal Exam
Gastrointestinal Exam: normal bowel sounds, non tender, soft, no organomegaly, no pulsatile mass, non distended and other (Obese)
Musculoskeletal Exam
Musculoskeletal Exam: full ROM and no edema
Skin Exam
Skin Exam: normal color, warm/dry, no rash and no petechia
Psychiatric Exam
Psychiatric Exam: normal mood/affect
Scores
Heart Score for Chest Pain Patients
STEMI patient?: No
History: Slightly or Non-Suspicious
ECG: Normal
Age: >/= 65 years
Risk Factors: 1 or 2 Risk Factors
Troponin: </= Normal Limit
Heart Score for Chest Pain Patients: 3
Heart Score Risk: 2.5% MACE over next 6 weeks
Course
Orders/Labs/Results
Orders:
Orders
09/03/24 16:01
Electrocardiogram (*1) Urgent
Reason for Study: Chest Pain
EKG- Treatment ONCE
09/03/24 16:14
Complete Blood Count/With Diff Urgent
Comprehensive Metabolic Panel Urgent
Troponin I Urgent
09/03/24 22:47
Electrocardiogram (*1) Urgent
Reason for Study: Tachycardia
EKG- Treatment ONCE
09/03/24 22:51
Electrocardiogram (*1) Urgent
Reason for Study: Chest Pain
Other Reason for Exam: Repeat with Troponin
EKG- Treatment ONCE
09/03/24 23:01
Pantoprazole [Protonix IV] 40 mg IV NOW STA
Sucralfate Suspension [Carafate Suspension] 1 gm PO NOW STA
09/03/24 23:10
D-Dimer Urgent
Troponin I Urgent
09/04/24 00:10
CT Chest PE Study Urgent
Reason For Exam: Chest pain, Neck pain Elevated D-dimer
09/04/24 00:11
Diphenhydramine [Benadryl] 50 mg IV NOW STA
Hydrocortisone Sod Succinate [Solu-Cortef] 200 mg IV NOW STA
Abnormal Lab Results
09/03/24 09/03/24
16:14 23:10
WBC 11.4 H 10^3/uL
(4.8-10.8)
MCHC 32.5 L g/dL
(33.0-37.0)
RDW 15.7 H %
(11.5-14.5)
Abs Immat Gran (auto) 0.1 H 10^3/uL
(0-0.05)
Absolute Neuts (auto) 8.3 H 10^3/uL
(1.4-6.5)
Absolute Monos (auto) 0.8 H 10^3/uL
(0.1-0.6)
Immature Gran % 0.7 H %
(0-0.5)
Lymphocytes % 18.0 L %
(20.5-51.1)
D-Dimer 1.72 H ug/mlFEU
(0.00-0.50)
Sodium 130 L mmol/L
(135-145)
Chloride 90 L mmol/L
(98-107)
BUN 40 H mg/dl
(7-17)
Glucose 110 H mg/dl
(70-99)
Total Bilirubin 1.4 H mg/dl
(0.2-1.3)
Alkaline Phosphatase 183 H U/L
(38-126)
Total Protein 8.7 H g/dl
(6.3-8.2)
Albumin 5.2 H g/dl
(3.5-5.0)
09/03/24 16:14
09/03/24 16:14
WBC slightly elevated, Sodium slightly low, Chloride low, Dehydration, Hyperglycemia. Total sim slightly elevated. Alk phos elevation. Total protein mildly elevated. Albumin slightly elevated. Troponin <0.012
Second Troponin <0.012, D-dimer 1.72 (CT negative )
Vital Signs
Initial and Last Documented VS:
Initial Vital Signs
Temp Pulse Resp BP Pulse Ox
97.7 F 106 20 152/94 98
09/03/24 16:07 09/03/24 16:07 09/03/24 16:07 09/03/24 16:07 09/03/24 16:07
Last Documented Vital Signs
Temp Pulse Resp BP Pulse Ox
97.6 F 93 17 165/101 96
09/04/24 01:05 09/04/24 01:00 09/04/24 00:00 09/04/24 01:00 09/04/24 01:00
MDM/Problems Addressed
Differential Diagnosis Includes:
Reflux, Cornonary syndrome
MDM/Problems Addressed:
This is a 79 year old female that comes in with c/o chest pain. States that she also had a tightness in her carotids. States that this started at 3pm today and the pain is gone at this time.
labs chest x-ray done at Triage. Will repeat ECG and Troponin and chest x-ray
Back into see patient. Explained that her Second Troponin was normal but her D-dimer was elevated. Will get CT of the chest.
Back into see patient. Explained that her CT is negative for PE but there is age indeterminate fractures of T8 and T10-12. [address] patient on the Ophthalmic Medical Technologist hot line. Patient to return with increased or changing pain. Will discharge back to
[facility].
Chronic conditions affecting care:
Chronic pain, Reflux
Acute Exacerbation and/or Progression of Chronic Illness:
Reflux
*Radiology
Radiology exam reviewed: radiology read reviewed (CT night hawk-Technically adequate bolus. Some motion artifact and degradation in imags at the level of the segmental and subsegmental level. Within this limitation, no pulmonary embolism is seen.
Aorta is normal within exam parameters without cardiac gating. Mosaic attenuation in the lungs without ), all reviewed NAD by ED Provider (CT cont- consolidation. NO effusion. Scarring or atelectasis along the right major fissure. Left shoulder
arthroplasty. Small hiatal hernia. Age indeterminate fracture of the T8 vertebral body with greater than 50% height loss and additional fractures of the T10-12 vertebral bodies, less than 50%) and other (CT cont- height loss. Correlate with
symptoms. )
*Pulse Oximetry
Patient hypoxic: no
*EKG
Interpreted by ED Provider?: Yes
Heart Rate: 99
Rate: normal
Rhythm: sinus and PVC's
[place]: left axis deviation
Interval: normal interval
QRS Pattern: normal QRS
Ischemia: no ischemia
*Culinary Artist Interpretation
Rate: tachycardiac
Heart Rate: 112
Rhythm: sinus
*Critical Care Note
Total Time (30-74mins, 75-104mins- exclusive of procedures): Not Applicable
ED Attending Note
-
Portions of this chart may have been created with voice recognition software.� Occasional wrong word or��sound alike� substitutions may have occurred due to the inherent limitations of voice recognition software.
Discharge Plan
Departure
Patient Disposition: Home (Routine Discharge)
Date of Disposition: 09/04/24
Time of Disposition: 02:15
Patient with high blood pressure during this ER visit?: Yes
Condition: Good
Covid-19: Not Applicable
Discharge Problem:
Chest pain
Instructions: Chest Pain CBC Follow Up, BLOOD PRESSURE
Prescriptions:
No Action
atorvastatin 20 MG tablet
20 mg PO DAILY
clonazepam 0.5 MG tablet
0.5 mg PO HS
calcium carbonate 600 MG tablet
600 mg PO BID
metoprolol succinate [Toprol XL] 25 MG tablet extended release 24 hr
25 mg PO HS
cholecalciferol (vitamin D3) [Vitamin D3] 1,000 UNIT capsule
1,000 unit PO DAILY
duloxetine 30 MG capsule,delayed release(DR/EC)
30 mg PO DAILY
Metamucil Fiber Singles 1 PACKET powder in packet
1 packet PO Q48H
Ure-Na 15 GM powder in packet
1 packet PO BID
furosemide [Lasix] 40 mg Tablet
40 mg PO DAILY
gabapentin 600 mg Tablet
1,800 mg PO HS
sulfasalazine 500 mg Tablet
1 g PO BID
famotidine 10 mg Tablet
10 mg PO BID PRN (Reason: dyspepsia)
polyethylene glycol 3350 17 gram Powder In Packet
17 g PO DAILY PRN (Reason: CONSTIPATION)
benzonatate 200 mg Capsule
200 mg PO TID PRN (Reason: cough)
lidocaine 4 % Cream
1 applic TOPICAL DAILY PRN (Reason: PAIN)
loperamide 2 mg Tablet
2 mg PO Q4H PRN (Reason: DIARRHEA)
methylprednisolone 4 mg Tablet
4 mg PO DAILY
acetaminophen 500 mg Tablet
1,000 mg PO Q6H PRN (Reason: PAIN)
guaifenesin 100 mg/5 mL Liquid
100 mg PO Q6H PRN (Reason: cough)
hydrocortisone 1 % Cream
1 applic TOPICAL BID PRN (Reason: PRURITIS)
lansoprazole 30 mg Capsule,Delayed Release(Dr/Ec)
30 mg PO DAILY
lidocaine 5 % Adhesive Patch,Medicated
1 patch TOPICAL DAILY PRN (Reason: LOWER BACK PAIN)
Fleet Enema 19-7 gram/118 mL Enema
118 ml [place] DAILY PRN (Reason: CONSTIPATION)
folic acid 1 mg Tablet
1 mg PO DAILY
calcium carbonate 500 mg calcium (1,250 mg) Tablet,Chewable
500 mg PO Q4H PRN (Reason: HEARTBURN)
mupirocin 2 % Ointment
1 applic TOPICAL BID
estradiol 0.01 % (0.1 mg/gram) Cream
1 g VAGINAL .TWICEWEEKLY
loratadine 10 mg Tablet
10 mg PO DAILY
cyclosporine [Restasis] 0.05 % Dropperette
1 drp OPHTHALMIC (EYE) Q12H
fluoride (sodium) [PreviDent 5000 Plus] 1.1 % Cream
1 applic DENTAL HS
lubiprostone 24 mcg Capsule
24 mcg PO BID
mecobalamin (vitamin B12) [B12 Active] 1,000 mcg Tablet,Chewable
1,000 mcg PO DAILY
Gemtesa 75 mg Tablet
75 mg PO DAILY
Probiotic
1 cap PO DAILY
Sodium Flouride 0.5 MG/ML
1 ml PO QID
aspirin 325 mg Tablet
325 mg PO DAILY 28 Days Qty: 28 0RF
docusate sodium 100 mg Capsule
100 mg PO BID Qty: 30 0RF
oxycodone 5 mg Tablet
5 mg PO Q4HPRN PRN (Reason: moderate pain) Qty: 20 0RF
meloxicam 15 mg Tablet
15 mg PO DAILY 14 Days Qty: 14 0RF
potassium chloride 20 MEQ tablet,ER particles/crystals
20 meq PO DAILY
Referrals:
Aparna Okeefe MD [Family Provider] - Call in 1-3 days for appt
Activity Restrictions/Additional Instructions:
As discussed, your blood work shows that you are dehydrated. Your Sodium level is a little low at 130. Your Both Troponin are normal. Your CT scan is negative for any pulmonary embolism but there is some compression fractures of T8, T10-12. [address] patient on the Ophthalmic Medical Technologist hot line for further evaluation. IF YOU HAVE INCREASED OR CHANGING PAIN, OR YOU HAVE ANY OTHER CONCERNS PLEASE RETURN TO THE EMERGENCY ROOM.
Interventions
Interventions:
*Risk Screen - Suicide Last Done: 09/03/24 16:07
*General Assessment Last Done: 09/03/24 16:07
*Neglect/Abuse Screening Last Done: 09/03/24 16:07
ED- Fall Risk Assessment Last Done: 09/04/24 00:13
*ED COVID-19 Vaccine History Last Done: 09/03/24 16:07
ED- Cardiac Assessment Last Done: 09/04/24 00:13
Discharge Date and Time
Print Language: SPANISH
[2024-09-03 23:34] LABS: D-Dimer 1.72 ug/mlFEU (0.00-0.50)
[2024-09-03] MEDS: PROTONIX IV 40 MG IV (23:35)
[2024-09-03] MEDS: CARAFATE SUSPENSION 1 GM PO (23:35)
[2024-09-03 23:44] LABS: Troponin I < 0.012 ng/ml
[2024-09-04] MEDS: SOLU-CORTEF 200 MG IV (00:21)
[2024-09-04] MEDS: BENADRYL 50 MG IV (00:22)
[2024-09-04 00:28] VITALS: BP 161/113
[2024-09-04 01:00] VITALS: BP 165/101
== END 2024-09-04 05:07 | disposition home or self-care (01) ==
LOC: EMR 15:56
PROVIDERS: Clinical Nurse Specialist Family Health; Emergency Medicine; EMERGENCY PHYSICIAN Student in an Organized Health Care Education/Training Program; FAMILY PHYSICIAN Family Medicine
DX: R07.9 Chest pain, unspecified (principal); I10 Essential (primary) hypertension
CPT/HCPCS: 99285; 96374; 96375 ×2; 71275; 80053; 84484; 85025; 85379; 93005; Q9967

== ENCOUNTER → 2024-09-22 09:58 | Outpatient (REF) | payer MEDICARE, BC, OTHER, SELFPAY ==
[2024-09-22 10:58] LABS: Blood Urea Nitrogen 41 mg/dl (7-17); Calcium 9.1 mg/dl (8.4-10.2); Carbon Dioxide 28 mmol/L (22-30); Chloride 98 mmol/L (98-107); Glucose 86 mg/dl (70-99); Potassium 4.7 mmol/L (3.5-5.1); Sodium 132 mmol/L (135-145); eGFR > 60.00
== END ==
LOC: OLABLV 09:58
PROVIDERS: ATTENDING PHYSICIAN Family Medicine
DX: N28.9 Disorder of kidney and ureter, unspecified (principal)
CPT/HCPCS: 36415; 80048

== ENCOUNTER → 2024-09-23 11:36 | Outpatient (REF) | payer MEDICARE, BC, OTHER, SELFPAY | LOC: RADI 11:36 | PROVIDERS: ATTENDING PHYSICIAN Physician Assistant; FAMILY PHYSICIAN Family Medicine | DX: M80.08XA Age-related osteoporosis with current pathological fracture, vertebra(e), initial encounter for fracture (principal) ==

== ENCOUNTER → 2024-10-14 12:56 | Outpatient (REF) | payer MEDICARE, BC, OTHER, SELFPAY | LOC: RAD 12:56 | PROVIDERS: ATTENDING PHYSICIAN Family Medicine | DX: M80.00XD Age-related osteoporosis with current pathological fracture, unspecified site, subsequent encounter for fracture with routine healing (principal); M81.0 Age-related osteoporosis without current pathological fracture | CPT/HCPCS: 77080 ==

== ENCOUNTER → 2024-10-19 06:25 | Outpatient (REF) | payer MEDICARE, BC, OTHER, SELFPAY ==
[2024-10-19] VITALS (14 sets, daily range): BP systolic 96–143; BP diastolic 66–98
[2024-10-19 06:48] LABS: Hemoglobin 13.3 g/dL (12.0-16.0); Mean Corp Hgb Conc. 32.4 g/dL (33.0-37.0); Mean Corpuscular Hgb 31.1 pg (27.0-31.0); Mean Platelet Volume 9.1 fL (7.4-10.4); Platelet Count 273 10^3/uL (130-400); Red Blood Cell Count 4.27 10^6/uL (4.20-5.40); Red Cell Dist. Width 14.5 % (11.5-14.5); White Blood Cell Count 8.9 10^3/uL (4.8-10.8)
[2024-10-19 06:57] LABS: INR 0.87; PT 12.2 Sec (11.4-14.6)
[2024-10-19] MEDS: ANCEF 10 IV (09:02)
== END ==
LOC: RADI 06:25
PROVIDERS: ATTENDING PHYSICIAN Radiology Vascular & Interventional Radiology; FAMILY PHYSICIAN Family Medicine; OTHER PHYSICIAN Physician Assistant; REFERRING PHYSICIAN Physician Assistant
DX: S22.060A Wedge compression fracture of T7-T8 vertebra, initial encounter for closed fracture (principal); W19.XXXA Unspecified fall, initial encounter
CPT/HCPCS: 22513; 36415; 85027; 85610

== ENCOUNTER → 2024-11-10 11:52 | Outpatient (REF) | payer MEDICARE, BC, OTHER, SELFPAY ==
[2024-11-10 12:27] LABS: Blood Urea Nitrogen 40 mg/dl (7-17); Calcium 9.5 mg/dl (8.4-10.2); Carbon Dioxide 29 mmol/L (22-30); Chloride 104 mmol/L (98-107); Glucose 90 mg/dl (70-99); Potassium 4.4 mmol/L (3.5-5.1); Sodium 137 mmol/L (135-145); eGFR > 60.00
== END ==
LOC: OLABLV 11:52
PROVIDERS: ATTENDING PHYSICIAN Internal Medicine Cardiovascular Disease
DX: E78.2 Mixed hyperlipidemia (principal); D64.9 Anemia, unspecified; I10 Essential (primary) hypertension; E87.1 Hypo-osmolality and hyponatremia
CPT/HCPCS: 36415; 80048

== ENCOUNTER → 2024-12-24 13:25 | Outpatient (REF) | payer MEDICARE, BC, OTHER, SELFPAY ==
[2024-12-24 13:41] LABS: Blood Urea Nitrogen 39 mg/dl (7-17); Calcium 9.2 mg/dl (8.4-10.2); Carbon Dioxide 28 mmol/L (22-30); Chloride 107 mmol/L (98-107); Glucose 91 mg/dl (70-99); Potassium 4.3 mmol/L (3.5-5.1); Sodium 138 mmol/L (135-145); eGFR > 60.00
== END ==
LOC: OLABLV 13:25
PROVIDERS: ATTENDING PHYSICIAN Family Medicine; OTHER PHYSICIAN Specialist
DX: E87.1 Hypo-osmolality and hyponatremia (principal)
CPT/HCPCS: 36415; 80048

== ENCOUNTER → 2025-01-04 09:25 | Outpatient (REF) | payer MEDICARE, BC, OTHER, SELFPAY | LOC: PAVMRI 09:25 | PROVIDERS: ATTENDING PHYSICIAN Family Medicine | DX: G89.4 Chronic pain syndrome (principal); M54.2 Cervicalgia | CPT/HCPCS: 72141 ==

== ENCOUNTER → 2025-02-09 10:43 | Outpatient (REF) | payer MEDICARE, BC, OTHER, SELFPAY ==
[2025-02-09 13:44] LABS: Calcium 9.4 mg/dl (8.4-10.2); HDL Cholesterol 49 mg/dl; LDL Cholesterol, Calculated 168 mg/dl; Very Low Density Lipoprotein 26 mg/dl (0-30)
[2025-02-09 13:58] LABS: Vitamin D, 25-OH*** 26.2 ng/mL (30-80)
[2025-02-09 14:11] LABS: TSH 3.52 uIU/ml (0.47-4.68)
[2025-02-09 14:23] LABS: tTG IgA Antibody 11.4 EU/ml (0-19); tTG IgG Antibody 33.1 EU/ml (0-19)
[2025-02-12 22:06] LABS: Albumin 3.45 g/dL (3.75-5.01); Free Kappa Light Chains,Quant 15.54 mg/L (3.30-19.40); Free Lambda Light Chains,Quant 12.81 mg/L (5.71-26.30); Immunofixation Electrophoresis IFE Done; Kappa/Lambda Fr Light Ratio 1.21 (0.26-1.65); Total Protein-Electrophoresis 5.9 g/dL (6.3-8.2)
== END ==
LOC: OLABLV 10:43
PROVIDERS: ATTENDING PHYSICIAN Internal Medicine; FAMILY PHYSICIAN Family Medicine
DX: E87.1 Hypo-osmolality and hyponatremia (principal); I10 Essential (primary) hypertension; R48.8 Other symbolic dysfunctions; M81.0 Age-related osteoporosis without current pathological fracture; E78.2 Mixed hyperlipidemia; E66.3 Overweight; Z79.899 Other long term (current) drug therapy
CPT/HCPCS: 36415; 80061; 82306; 82784; 83516; 83521; 83970; 84100; 84155; 84165; 84439; 84443; 86231; 86334

== ENCOUNTER → 2025-02-23 11:32 | Outpatient (REF) | payer MEDICARE, BC, OTHER, SELFPAY ==
[2025-02-23 11:53] LABS: Platelet Count 304 10^3/uL (130-400)
[2025-02-23 12:19] LABS: ALT (SGPT) 13 U/L (0-35); AST (SGOT) 22 U/L (14-36); Albumin 4.3 g/dl (3.5-5.0); Alkaline Phosphatase 78 U/L (38-126); Blood Urea Nitrogen 35 mg/dl (7-17); Calcium 9.8 mg/dl (8.4-10.2); Carbon Dioxide 27 mmol/L (22-30); Chloride 102 mmol/L (98-107); Glucose 98 mg/dl (70-99); Potassium 4.7 mmol/L (3.5-5.1); Sodium 135 mmol/L (135-145); Total Protein 7.0 g/dl (6.3-8.2); eGFR > 60.00
[2025-02-23 12:23] LABS: C-Reactive Protein 6.20 mg/L (0.0-10.00)
== END ==
LOC: OLABLV 11:32
PROVIDERS: ATTENDING PHYSICIAN Family Medicine
DX: M06.9 Rheumatoid arthritis, unspecified (principal)
CPT/HCPCS: 36415; 80053; 85004; 85049; 85652; 86140

== ENCOUNTER → 2025-03-14 10:56 | Outpatient (REF) | payer MEDICARE, BC, OTHER, SELFPAY | LOC: HWWDC 10:56 | PROVIDERS: ATTENDING PHYSICIAN Family Medicine | DX: Z12.31 Encounter for screening mammogram for malignant neoplasm of breast (principal) | CPT/HCPCS: 77063; 77067 ==

== ENCOUNTER → 2025-05-20 10:53 | Outpatient (REF) | payer MEDICARE, BC, OTHER, SELFPAY ==
[2025-05-20 11:51] LABS: Hematocrit 35.4 % (37.0-47.0); Hemoglobin 11.6 g/dL (12.0-16.0); Mean Corp Hgb Conc. 32.8 g/dL (33.0-37.0); Mean Corpuscular Volume 89.8 fL (81.0-99.0); Nucleated Red Blood Cells % 0 %; Platelet Count 235 10^3/uL (130-400); Red Cell Dist. Width 15.3 % (11.5-14.5)
[2025-05-20 13:25] LABS: C-Reactive Protein 7.20 mg/L (0.0-10.00)
[2025-05-20 13:29] LABS: ALT (SGPT) 13 U/L (0-35); AST (SGOT) 20 U/L (14-36); Albumin 3.6 g/dl (3.5-5.0); Alkaline Phosphatase 51 U/L (38-126); Blood Urea Nitrogen 33 mg/dl (7-17); Calcium 9.1 mg/dl (8.4-10.2); Carbon Dioxide 26 mmol/L (22-30); Chloride 100 mmol/L (98-107); Glucose 84 mg/dl (70-99); Potassium 4.5 mmol/L (3.5-5.1); Sodium 132 mmol/L (135-145); Total Protein 6.1 g/dl (6.3-8.2); eGFR > 60.00
[2025-05-20 13:42] LABS: Vitamin D, 25-OH*** 35.4 ng/mL (30-80)
== END ==
LOC: OLABLV 10:53
PROVIDERS: ATTENDING PHYSICIAN Family Medicine; REFERRING PHYSICIAN Physician Assistant
DX: M06.09 Rheumatoid arthritis without rheumatoid factor, multiple sites (principal); M15.0 Primary generalized (osteo)arthritis; Z79.52 Long term (current) use of systemic steroids
CPT/HCPCS: 36415; 80053; 82306; 85025; 85652; 86140

== ENCOUNTER → 2025-06-08 11:53 | Outpatient (REF) | payer MEDICARE, OTHER, BC, SELFPAY ==
[2025-06-08 13:18] LABS: Hematocrit 36.4 % (37.0-47.0); Hemoglobin 11.9 g/dL (12.0-16.0); Mean Corp Hgb Conc. 32.7 g/dL (33.0-37.0); Mean Corpuscular Volume 93.3 fL (81.0-99.0); Platelet Count 262 10^3/uL (130-400); Red Cell Dist. Width 15.0 % (11.5-14.5)
[2025-06-08 14:07] LABS: ALT (SGPT) 12 U/L (0-35); AST (SGOT) 18 U/L (14-36); Albumin 3.7 g/dl (3.5-5.0); Alkaline Phosphatase 54 U/L (38-126); Blood Urea Nitrogen 36 mg/dl (7-17); Calcium 8.9 mg/dl (8.4-10.2); Carbon Dioxide 29 mmol/L (22-30); Chloride 96 mmol/L (98-107); Glucose 78 mg/dl (70-99); HDL Cholesterol 75 mg/dl; LDL Cholesterol, Calculated 101 mg/dl; Potassium 4.9 mmol/L (3.5-5.1); Sodium 130 mmol/L (135-145); Total Protein 6.2 g/dl (6.3-8.2); Very Low Density Lipoprotein 14 mg/dl (0-30); eGFR > 60.00
== END ==
LOC: OLABLV 11:53
PROVIDERS: ATTENDING PHYSICIAN Specialist; FAMILY PHYSICIAN Family Medicine
DX: E87.1 Hypo-osmolality and hyponatremia (principal); E78.5 Hyperlipidemia, unspecified
CPT/HCPCS: 36415; 80053; 80061; 85027

== ENCOUNTER → 2025-06-10 08:00 | Outpatient (REF) | payer BC, MEDICARE, OTHER, SELFPAY ==
[2025-06-10 10:58] LABS: Blood Urea Nitrogen 38 mg/dl (7-17); Calcium 9.3 mg/dl (8.4-10.2); Carbon Dioxide 31 mmol/L (22-30); Chloride 97 mmol/L (98-107); Glucose 88 mg/dl (70-99); Potassium 4.7 mmol/L (3.5-5.1); Sodium 133 mmol/L (135-145); eGFR > 60.00
== END ==
LOC: OLABLV 08:00
PROVIDERS: ATTENDING PHYSICIAN Specialist; REFERRING PHYSICIAN Family Medicine
DX: I10 Essential (primary) hypertension (principal); E87.1 Hypo-osmolality and hyponatremia; M06.9 Rheumatoid arthritis, unspecified
CPT/HCPCS: 36415; 80048

== ENCOUNTER 2025-06-10 15:37 | Observation (INO) | payer BC, MEDICARE, OTHER, SELFPAY ==
[2025-06-10] VITALS (8 sets, daily range): BP systolic 122–147; BP diastolic 66–89; BMI 36.5; BMI 36.8
[2025-06-10 11:44] LABS: Hematocrit 40.1 % (37.0-47.0); Hemoglobin 13.0 g/dL (12.0-16.0); Mean Corp Hgb Conc. 32.4 g/dL (33.0-37.0); Mean Corpuscular Volume 93.3 fL (81.0-99.0); Nucleated Red Blood Cells % 0 %; Platelet Count 246 10^3/uL (130-400); Red Cell Dist. Width 14.9 % (11.5-14.5)
--- NOTE | 2025-06-10 12:01 | ED.GENMED ---
History of Present Illness
General
Chief Complaint: Dizziness
Time Seen by Provider: 06/10/25 11:36
History of Present Illness
History of Present Illness:
Patient is a 80-year-old presenting to the emergency department with lightheadedness dizziness. Patient states that she was in the shower when she had the urge to have a bowel movement and then became lightheaded dizzy. She did not have a syncopal
event. Since then she has been having a chills and some vague abdominal pain. She does have a history of constipation that she is on Metamucil for. No fevers. No cough congestion runny nose. No chest pain. No difficulty breathing. No urinary
symptoms. She does feel much better from a lightheaded standpoint. No palpitations.
Past History
Past History
ED Past Medical History: Arrthythmia (Per pt- SVT on Digoxin), Cancer (Uterine cancer), GERD, HTN, Hypercholesterolemia, Psychiatric (Depression, anxiety) and Other (RA, Back and neck pain, Overactive bladder, )
ED Past Surgical History: Appendectomy, Orthopedic (Sim bunion repair, Sim knee replacement, Right foot Pins, Bilateral shoulder replacement, ), Tonsilectomy (and adenoids) and Other
Social History
Tobacco: Former smoker
Alcohol: Daily (Wine 1 glass)
Drug: None
Personal:
Living: skilled nursing
Phy Exam
Physical Exam
Physical Exam:
GENERAL: in no acute distress
HEENT: normocephalic, extraocular movements intact, dry oral mucosa
NECK: normal inspection
RESPIRATORY: no respiratory distress, clear to auscultation bilaterally
CARDIOVASCULAR: regular rate and rhythm
ABDOMEN/: soft, non-distended, diffusely tender, no rebound or guarding
EXTREMITIES: non-tender, no edema/swelling
NEUROLOGIC: awake and alert, moves all extremities
SKIN: warm
Course
Orders/Labs/Results
Orders:
Orders
06/10/25 11:34
Electrocardiogram (*1) Urgent
Reason for Study: Chest Pain
EKG- Treatment ONCE
06/10/25 11:36
Complete Blood Count/With Diff Urgent
Comprehensive Metabolic Panel Urgent
Troponin I Urgent
06/10/25 12:00
CT Abd/pel Without Iv Or Oral Urgent
Reason For Exam: generalized tenderness
0.9% Sodium Chloride 1000 ml [Nss] 1,000 ml IV BOLUS
06/10/25 12:41
Urinalysis Reflex To Culture Urgent
Date Specimen was Collected: 06/10/25
Time Specimen was Collected: 12:40
Urine Microscopic Reflex Cult Urgent
06/10/25 12:46
Type+Screen Urgent
BBK Wristband Number:
06/10/25 14:45
Blood Culture Q30M
SAMEERA Source: Blood/Venous
Specimen Description:
06/10/25 15:15
Blood Culture Q30M
SAMEERA Source: Blood/Venous
Specimen Description:
Abnormal Lab Results
06/10/25 06/10/25
11:36 12:41
WBC 17.3 H 10^3/uL
(4.8-10.8)
MCHC 32.4 L g/dL
(33.0-37.0)
RDW 14.9 H %
(11.5-14.5)
Abs Immat Gran (auto) 0.1 H 10^3/uL
(0-0.05)
Absolute Neuts (auto) 15.3 H 10^3/uL
(1.4-6.5)
Absolute Lymphs (auto) 1.0 L 10^3/uL
(1.2-3.4)
Absolute Monos (auto) 0.8 H 10^3/uL
(0.1-0.6)
Neutrophils % 88.4 H %
(42.2-75.2)
Lymphocytes % 5.7 L %
(20.5-51.1)
Sodium 131 L mmol/L
(135-145)
Chloride 96 L mmol/L
(98-107)
BUN 31 H mg/dl
(7-17)
Glucose 108 H mg/dl
(70-99)
Urine Albumin (Reflex) 1+ A
(Neg - Trace)
06/10/25 11:36
06/10/25 11:36
Vital Signs
Initial and Last Documented VS:
Initial Vital Signs
Temp Pulse Resp Pulse Ox
98.1 F 88 18 95
06/10/25 11:25 06/10/25 11:25 06/10/25 11:25 06/10/25 11:25
Last Documented Vital Signs
Temp Pulse Resp BP Pulse Ox
98.1 F 105 21 147/89 94
06/10/25 11:25 06/10/25 14:15 06/10/25 14:15 06/10/25 14:06 06/10/25 14:25
MDM/Problems Addressed
Differential Diagnosis Includes:
Patient is a 80-year-old woman presenting to the emergency department with lightheadedness dizziness that occurred in the shower before she had to have a bowel movement as well as feeling she is having the chills. On arrival patient is afebrile.
Exam does show dry oral mucosa as well as diffuse tenderness. Likely patient with a vasovagal event given the bowel movement that preceded the symptoms. However concern for diverticulitis or colitis given the abdominal pain. History exam not
consistent with acute abdomen. Will check blood work EKG and CT scan. Will give fluids.
*Pulse Oximetry
SaO2: 95
Oxygen Mode of Delivery: Room air
Patient hypoxic: no
*Critical Care Note
Total Time (30-74mins, 75-104mins- exclusive of procedures): Not Applicable
Update Note
Update Note:
Upon reevaluation patient resting comfortably. Blood work does show leukocytosis. Her BMP is notable for sodium 131. CT scan with no acute findings. Urine is not infected. Unclear etiology. Patient is afebrile though is complaining of chills.
Will check blood cultures. She continues to denies any cough congestion runny nose or recent sick contacts.
ED Attending Note
-
Portions of this chart may have been created with voice recognition software.� Occasional wrong word or��sound alike� substitutions may have occurred due to the inherent limitations of voice recognition software.
Discharge Plan
Departure
Patient Disposition: Admit
Date of Disposition: 06/10/25
Time of Disposition: 14:45
Presentation/result/management discussed w/ accepting MD/DO: Hospitalist
Discharge Problem:
Leukocytosis
Prescriptions:
No Action
clonazepam 0.5 MG tablet
0.5 mg PO HS
calcium carbonate 600 MG tablet
600 mg PO BID
metoprolol succinate [Toprol XL] 25 MG tablet extended release 24 hr
25 mg PO HS
cholecalciferol (vitamin D3) [Vitamin D3] 1,000 UNIT capsule
1,000 unit PO DAILY
Ure-Na 15 GM powder in packet
1 packet PO BID
furosemide [Lasix] 40 mg Tablet
40 mg PO DAILY
sulfasalazine 500 mg Tablet
1,000 mg PO DAILY
polyethylene glycol 3350 17 gram Powder In Packet
17 g PO DAILY
methylprednisolone 4 mg Tablet
4 mg PO DAILY
acetaminophen 500 mg Tablet
1,000 mg PO Q6HPRN PRN (Reason: mild PAIN)
folic acid 1 mg Tablet
1 mg PO DAILY
loratadine 10 mg Tablet
10 mg PO DAILY
cyclosporine [Restasis] 0.05 % Dropperette
1 drp BOTH EYES Q12H
fluoride (sodium) [PreviDent 5000 Plus] 1.1 % Cream
1 applic DENTAL HS
Gemtesa 75 mg Tablet
75 mg PO DAILY
potassium chloride 20 MEQ tablet,ER particles/crystals
20 meq PO DAILY
duloxetine 40 mg Capsule,Delayed Release(Dr/Ec)
40 mg PO BID
lansoprazole 30 mg Capsule,Delayed Release(Dr/Ec)
30 mg PO DAILY
fluticasone propionate [Flonase] 50 mcg/actuation [place],Suspension
2 spray INTRANASAL DAILY
solifenacin [Vesicare] 5 mg Tablet
5 mg PO DAILY
Visbiome 112.5 billion cell Capsule
1 cap PO DAILY
gabapentin 600 mg Tablet
1,800 mg PO HS
atorvastatin [Lipitor] 20 mg Tablet
20 mg PO QPM
famotidine [Heartburn Relief (famotidine)] 10 mg Tablet
10 mg PO BIDPRN PRN (Reason: gerd)
famotidine [Pepcid] 40 mg Tablet
40 mg PO HS
guaifenesin [Tussin] 100 mg/5 mL Liquid
100 mg PO Q6HPRN PRN (Reason: cough)
lidocaine 5 % Adhesive Patch,Medicated
1 patch TOPICAL DAILYPRN PRN (Reason: neck and/or left knee)
estradiol 0.01 % (0.1 mg/gram) Cream
1 appful VAGINAL MOTH
diclofenac sodium [Voltaren] 1 % Gel
0 g TOPICAL Q6HPRN PRN (Reason: nack and/or left knee)
Wegovy 0.5 mg/0.5 mL Pen Injector
0.5 mg SC TH
Referrals:
Aparna Okeefe MD [Family Provider, Family Practice]
Interventions
Interventions:
*Risk Screen - Suicide Last Done: 06/10/25 11:25
*General Assessment Last Done: 06/10/25 11:25
*Neglect/Abuse Screening Last Done: 06/10/25 11:25
*ED- Fall Risk Assessment Last Done: 06/10/25 11:39
*ED COVID-19 Vaccine History Last Done: 06/10/25 11:39
*ED Influenza Vaccine History Last Done: 06/10/25 11:39
ED- Cardiac Assessment Last Done: 06/10/25 11:45
ED- Neurological Assessment Last Done: 06/10/25 11:45
ED Swallowing Screen Last Done: 06/10/25 12:20
Discharge Date and Time
Print Language: KOREAN
[2025-06-10 12:07] LABS: ALT (SGPT) 15 U/L (0-35); AST (SGOT) 21 U/L (14-36); Albumin 4.5 g/dl (3.5-5.0); Alkaline Phosphatase 54 U/L (38-126); Blood Urea Nitrogen 31 mg/dl (7-17); Calcium 9.2 mg/dl (8.4-10.2); Carbon Dioxide 28 mmol/L (22-30); Chloride 96 mmol/L (98-107); Estimated Creatinine Clearance 76 ml/min; Glucose 108 mg/dl (70-99); Potassium 4.1 mmol/L (3.5-5.1); Sodium 131 mmol/L (135-145); Total Protein 7.4 g/dl (6.3-8.2); eGFR > 60.00
[2025-06-10] MEDS: NSS 1000 IV ×2 (12:13→20:37)
[2025-06-10 12:21] LABS: Troponin I < 0.012 ng/ml
[2025-06-10 12:59] LABS: Urine Character Clear (Clear)
--- NOTE | 2025-06-10 13:05 | EDRN ---
Dr. Schneider informed of straight cath urine output of drained 650 mL of urine.
[2025-06-10 13:40] LABS: Urine Red Blood Cell 0-2 /HPF (0-2); Urine White Cell 0-2 /HPF (0-5)
--- NOTE | 2025-06-10 14:48 | HPS.HSE ---
Family Physician
-
Family Physician: Aparna Okeefe MD
Chief Complaint
-
dizziness
History of Present Illness
Ms. Alissa Woodall is a 80 yo woman with hx HTN, HLD, SVT, RA, anxiety/depression, GERD presents to the ER after felt dizzy in the shower.
Patient lives in personal care at [facility]. She woke up today feeling very hot and feverish. She had not eaten breakfast, states she usually doesn't. She has a home care analyst who was helping her take a shower. Patient started to feel dizzy and
then she had a bowel movement, that was soft but not diarrhea. She was then brought to the ER. Patient has no measured fever here but reports she feels flushed like she has a fever.
No body aches. Intermittent cough at night chronic. No new congestion. No chest pain or shortness of breath. No nausea/vomiting. No change in BM over past couple of months, occasionally has loose stools. No LE swelling.
Medical History
Past Medical History
Past Medical History: Reports Other ( HTN, HLD, SVT, RA, anxiety/depression, GERD)
Past Surgical History: Reports Appendectomy and Gynocological (total oophorectomy)
Social History
Tobacco: Non-smoker
Alcohol: Occasional
Family History
Family History: Not pertinent
Allergies / Home Medications
Allergies reflects when Allergies were last updated in [facility].
Home Medications with original date entered in [facility]
Allergy/Medication List:
Allergies
Allergy/AdvReac Type Severity Reaction Status Date / Time
Iodinated Contrast Media Allergy Unknown Unknown Verified 06/10/25 11:31
4-Aminoquinolines Allergy Unknown Verified 06/10/25 11:31
8-Aminoquinolines Allergy Unknown Verified 06/10/25 11:31
Sulfa (Sulfonamide Allergy Unknown Verified 06/10/25 11:31
Antibiotics)
Home Medications
calcium carbonate 600 mg PO BID Supplement 01/12/22
cholecalciferol (vitamin D3) 25 mcg (1,000 unit) capsule (Vitamin D3) 1,000 unit PO DAILY Supplement 01/12/22
clonazepam 0.5 mg tablet 0.5 mg PO HS Mental Health/Anxiety/SLEEP 01/12/22
metoprolol succinate 25 mg tablet,extended release 24 hr (Toprol XL) 25 mg PO HS Blood pressure 01/12/22
urea 15 gram oral powder packet (Ure-Na) 1 packet PO BID Fluid retention/Swelling 01/12/22
acetaminophen 500 mg tablet 1,000 mg PO Q6HPRN PRN mild PAIN 04/14/24
cyclosporine 0.05 % eye drops in a dropperette (Restasis) 1 drp BOTH EYES Q12H Eye Condition 04/14/24
fluoride (sodium) 1.1 % dental cream (PreviDent 5000 Plus) 1 applic dental HS 04/14/24
folic acid 1 mg tablet 1 mg PO DAILY Supplement 04/14/24
furosemide 40 mg tablet (Lasix) 40 mg PO DAILY Fluid Retention/Swelling 04/14/24
loratadine 10 mg tablet 10 mg PO DAILY Allergies 04/14/24
methylprednisolone 4 mg tablet 4 mg PO DAILY Anti-Inflammatory 04/14/24
polyethylene glycol 3350 17 gram oral powder packet 17 g PO DAILY CONSTIPATION 04/14/24
sulfasalazine 500 mg tablet 1,000 mg PO DAILY 04/14/24
vibegron 75 mg tablet (Gemtesa) 75 mg PO DAILY OVERACTIVE BLADDER 04/14/24
potassium chloride 20 mEq tablet,extended release(part/cryst) 20 meq PO DAILY Supplement 04/21/24
duloxetine 40 mg capsule,delayed release 40 mg PO BID Urinary Issue 10/15/24
Lactobac no.2-Bifidobac no.1-S. thermo 112.5 billion cell capsule (Visbiome) 1 cap PO DAILY Supplement 06/10/25
atorvastatin 20 mg tablet (Lipitor) 20 mg PO QPM High Cholesterol 06/10/25
diclofenac sodium 1 % topical gel 0 g topical Q6HPRN PRN nack and/or left knee 06/10/25
estradiol 0.01% (0.1 mg/gram) vaginal cream 1 appful vaginal MOTH Hormonal Agent 06/10/25
famotidine 10 mg tablet (Heartburn Relief (famotidine)) 10 mg PO BIDPRN PRN gerd 06/10/25
famotidine 40 mg tablet (Pepcid) 40 mg PO HS Gastrointestinal Issue 06/10/25
fluticasone propionate 50 mcg/actuation nasal spray,suspension 2 spray intranasal DAILY Allergies 06/10/25
gabapentin 600 mg tablet 1,800 mg PO HS Neurological Condition 06/10/25
guaifenesin 100 mg/5 mL oral liquid (Tussin) 100 mg PO Q6HPRN PRN cough 06/10/25
lansoprazole 30 mg capsule,delayed release 30 mg PO DAILY Gastrointestinal Issue 06/10/25
lidocaine 5 % topical patch 1 patch topical DAILYPRN PRN neck and/or left knee 06/10/25
semaglutide (weight loss) 0.5 mg/0.5 mL subcutaneous pen injector (Wegovy) 0.5 mg SC TH Weight Gain 06/10/25
solifenacin 5 mg tablet (Vesicare) 5 mg PO DAILY Urinary Issue 06/10/25
Review of Systems
-
History Source: Patient
A 12 point ROS was completed and negative except as noted: Yes
Physical Exam
Vital Signs
Vital Signs
Temp Pulse Resp BP Pulse Ox
98.1 F 105 21 147/89 94
06/10/25 11:25 06/10/25 14:15 06/10/25 14:15 06/10/25 14:06 06/10/25 14:25
Physical Exam
General: No Apparent Distress
HEENT: PERRLA
Cardiac: S1/S2 and Regular Rhythm
GI: Soft and Non Tender
Musculoskeletal: No Edema
Skin: Warm and Dry; No Rash
Neuro: AO x 3
Psych: Calm
Laboratory Results
-
06/10/25 11:36
06/10/25 11:36
Laboratory Results
Total Bilirubin 0.8 mg/dl (0.2-1.3) 06/10/25 11:36
AST 21 U/L (14-36) 06/10/25 11:36
ALT 15 U/L (0-35) 06/10/25 11:36
Alkaline Phosphatase 54 U/L (38-126) 06/10/25 11:36
Troponin I < 0.012 ng/ml 06/10/25 11:36
Data Reviewed
-
Diagnostic Radiology: Report Reviewed by me
Lab Data: Labs Reviewed by me
Impression/Plan
-
Ms. Alissa Woodall is a 80 yo woman with hx HTN, HLD, SVT, RA, anxiety/depression, GERD presents to the ER after felt dizzy in the shower.
Triage VS: T 98.1, P 88, RR 18, SpO2 95%
LABS: WBC 17.3, Hg 13, PLT 246, Na 131, K+ 4.1, CO2 28, Cr 0.7, Glucose 108, liver enzymes WNL
Troponin < 0.012
UA 0-[address] A/P
IMPRESSION:
1. No acute findings within the abdomen or pelvis.
2. Distended urinary bladder.
3. Multiple chronic appearing compression deformities within the lower thoracic and upper lumbar spine.
4. Additional findings above.
MAR - 1L
Pre-Syncope
-suspect vasovagal as preceded a bowel movement versus orthostatic as patient was standing in the shower, reports not eating breakfast
-Troponin undetectable; EKG sinus tachycardia @ 104, occasional PVC's
-s/p 1 L IVF in ER
-admit to telemetry, observation
-NS @ 70 x 1 L
-PT
-Regular diet
-hold SALON/SPA MANAGER Lasix
Leukocytosis
Chills
-no measured fever in ER, patient appears flushed and is now reporting chills
-Abdominal CT without acute finding in abdomen or pelvis
-UA without e/o UTI
-check Flu and Covid
-obtain CXR
-follow up blood cultures
-hold off on antibiotics for now
RA
-SALON/SPA MANAGER Methylprednisolone (BP currently stable), Sulfasalazine
-patient has Voltaren and PRN Lidocaine patch for neck and knee pain
-Gabapentin 1800mg qhs on home med rec; will decrease dose to 900mg qhs and monitor response - consider changing to BID
Essential HTN -SALON/SPA MANAGER Metoprolol
GERD - SALON/SPA MANAGER PPI, Pepci (lower dose to 20mg)
Overactive bladder - SALON/SPA MANAGER Gemtesa, Solifenacin
constipation - change Miralax to PRN given report of loose stools
Depression/Anxiety
-SALON/SPA MANAGER Duloxetine
-SALON/SPA MANAGER Clonazepam qhs
HLD - SALON/SPA MANAGER Statin
DVT PPx - Lovenox subQ
DNR - discussed on admission
[2025-06-10 16:00] LABS: COVID-19 Antigen Negative (Negative)
--- NOTE | 2025-06-10 18:35 | PTCARENOTE ---
Received pt from ED via stretcher. Pt pulled over to bed with assist x4. Assessed and oriented to room. VSS. No complaints of pain. Bed alarm and telemetry placed. Skin assessed, perineum blanchable red, sacrum & heels CDI.
[2025-06-10 18:58] LABS: Procalcitonin 0.17 ng/ml (0.0-0.25)
[2025-06-10] MEDS: CYMBALTA DELAYED RELEASE 40 MG PO (20:41)
[2025-06-10] MEDS: LIPITOR 20 MG PO (20:41)
[2025-06-10] MEDS: RESTASIS 0.05% OPHTHALMIC EMULSION 1 DROPS BOTH EYES (20:42)
[2025-06-10] MEDS: LOVENOX 40 MG SC (20:43)
[2025-06-10] MEDS: TYLENOL 1000 MG PO (20:51)
[2025-06-10] MEDS: TOPROL XL 25 MG PO (22:03)
[2025-06-10] MEDS: KLONOPIN 0.5 MG PO (22:03)
[2025-06-10] MEDS: PEPCID 20 MG PO (22:04)
[2025-06-10] MEDS: NEURONTIN 900 MG PO (22:05)
[2025-06-11] VITALS (8 sets, daily range): BP systolic 114–158; BP diastolic 74–98; PULSE 89–96; O2SAT 99; BMI 36.1
[2025-06-11 07:48] LABS: Hematocrit 32.1 % (37.0-47.0); Hemoglobin 10.5 g/dL (12.0-16.0); Mean Corp Hgb Conc. 32.7 g/dL (33.0-37.0); Mean Corpuscular Volume 92.5 fL (81.0-99.0); Nucleated Red Blood Cells % 0 %; Platelet Count 227 10^3/uL (130-400); Red Cell Dist. Width 15.0 % (11.5-14.5)
[2025-06-11 08:30] LABS: Blood Urea Nitrogen 12 mg/dl (7-17); Calcium 8.2 mg/dl (8.4-10.2); Carbon Dioxide 23 mmol/L (22-30); Chloride 99 mmol/L (98-107); Estimated Creatinine Clearance 88 ml/min; Glucose 76 mg/dl (70-99); Magnesium 2.1 mg/dl (1.6-2.3); Potassium 3.6 mmol/L (3.5-5.1); Sodium 128 mmol/L (135-145); eGFR > 60.00
[2025-06-11] MEDS: PROTONIX 40 MG PO (08:55)
[2025-06-11] MEDS: FOLVITE 1 MG PO (08:55)
[2025-06-11] MEDS: CLARITIN 10 MG PO (08:55)
[2025-06-11] MEDS: AZULFIDINE 1000 MG PO (08:55)
[2025-06-11] MEDS: VISBIOME 1 CAP PO (08:55)
[2025-06-11] MEDS: DETROL LA 2 MG PO (08:55)
[2025-06-11] MEDS: MEDROL 4 MG PO (08:55)
[2025-06-11] MEDS: CYMBALTA DELAYED RELEASE 40 MG PO ×2 (08:58→19:42)
[2025-06-11] MEDS: RESTASIS 0.05% OPHTHALMIC EMULSION 1 DROPS BOTH EYES ×2 (08:58→19:42)
--- NOTE | 2025-06-11 11:20 | CM ---
Addendum entered by Yazmin Hernandez 06/11/25 12:54:
CASH form explained & signed. In chart
Addendum entered by Yazmin Hernandez 06/11/25 12:51:
CM consult completed for VN
Addendum entered by Yazmin Hernandez 06/11/25 12:34:
PT rec home health
spoke with Boby at [place]
options reviewed & patient prefers [facility] - referral placed in [facility]
patient request ambulance for transport
PLAN: [facility] when stable
report #: [phone] - ask for Boby
Fax #: [phone]
transportation forms on chart, patient request ambulance
Original Note:
Patient seen at bedside
IA completed
lives alone at [facility]
PLOF: Independent with rollator
DME: Rollator, walker, shower bench
Denies VN, reports [facility] in past
Await PT/OT evals
PCP: Aparna Okeefe
Pharmacy: [facility]
PLAN: TBD, await PT/OT eval, CM to continue to follow for dc planning/needs
[2025-06-11] MEDS: TYLENOL 1000 MG PO (11:55)
--- NOTE | 2025-06-11 12:11 | W.PN.HOSP.TC ---
Today's Communication/Plan
-
see outlined plan below
Assessment / Plan
Assessment / Plan
Assessment:
Pre-Syncope
- suspect vasovagal as preceded a bowel movement versus orthostatic as patient was standing in the shower, reports not eating breakfast
- Troponin undetectable; EKG sinus tachycardia @ 104, occasional PVC's
- s/p 2L IVF
- monitor telemetry, observation
- check orthostatics
- PT/OT
- hold BLOCKER AND CUTTER CONTACT LENS Lasix
Acute on chronic hyponatremia
- reports 48 fluid restriction at home; also on Lasix
- holding Lasix for now
- 1500 cc OFR
- monitor AM BMP
- check Sosm, Uosm, Inge, TSH, Cortisol
Leukocytosis
Chills
- leukocytosis could be steroid related
- monitor CBC
- no fevers recorded, subjective chills
- CXR with possible PNA; procal negative
- Abdominal CT without acute finding in abdomen or pelvis
- UA negative
- COVID/Flu negative
- follow up blood cultures
- hold off on antibiotics for now
RA
- BLOCKER AND CUTTER CONTACT LENS Methylprednisolone (BP currently stable), Sulfasalazine
- patient has Voltaren and PRN Lidocaine patch for neck and knee pain
- gabapentin 1800mg qhs on home med rec; will decrease dose to 900mg qhs and monitor response - consider changing to BID
Essential HTN - BLOCKER AND CUTTER CONTACT LENS Metoprolol
GERD - BLOCKER AND CUTTER CONTACT LENS PPI, Pepcid (lower dose to 20mg)
Overactive bladder - BLOCKER AND CUTTER CONTACT LENS Gemtesa, Solifenacin
constipation - change Miralax to PRN given report of loose stools
Depression/Anxiety
- BLOCKER AND CUTTER CONTACT LENS Duloxetine
- BLOCKER AND CUTTER CONTACT LENS Clonazepam qhs
HLD - BLOCKER AND CUTTER CONTACT LENS Statin
DVT ppx: Lovenox
Code: DNR/DNI
Anticipated Discharge: Within 24 hours
Subjective/Interval History
-
Date of Service: June 11, 2025
resting comfortably
denies dizziness at this time
no CP/SOB/no fever/chills
Objective Data
-
Labs:
Laboratory Results
06/11/25
07:01
WBC 21.8 H
Hgb 10.5 L
Hct 32.1 L
Plt Count 227
Sodium 128 L
Potassium 3.6
Chloride 99
Carbon Dioxide 23
BUN 12
Creatinine 0.6
Glucose 76
Calcium 8.2 L
Vital Signs:
Vital Signs
Temp Pulse Resp BP Pulse Ox
98.2 F 85 18 128/80 95
06/11/25 11:05 06/11/25 11:05 06/11/25 11:05 06/11/25 11:05 06/11/25 11:05
I&O
06/10/25 06/11/25 06/12/25
06:59 06:59 06:59
Intake Total 675 / 675
Output Total 2274 / 2274
Balance -1600 / -1600
Physical Exam
-
General: No Apparent Distress
HEENT: Normocephalic and Atraumatic
Respiratory: Negative Wheezes
Cardiac: Regular Rhythm and S1/S2
GI: Soft and Nontender
Musculoskeletal: No Edema
Neuro: AO x 3
Psych: Calm
Data Reviewed
-
Total Time Spent with Patient (in minutes): 42
Labs: Labs Reviewed by me
[2025-06-11] MEDS: LIPITOR 20 MG PO (17:42)
[2025-06-11] MEDS: LOVENOX 40 MG SC (17:42)
[2025-06-11] MEDS: PEPCID 20 MG PO (22:03)
[2025-06-11] MEDS: KLONOPIN 0.5 MG PO (22:03)
[2025-06-11] MEDS: TOPROL XL 25 MG PO (22:03)
[2025-06-11] MEDS: NEURONTIN 900 MG PO (22:04)
[2025-06-11] MEDS: TUMS CHEWABLE TABLET 200 MG PO (23:38)
[2025-06-12 03:36] VITALS: BP 152/90
[2025-06-12 06:26] VITALS: BMI 35.6
[2025-06-12 07:28] VITALS: BP 152/98
[2025-06-12] MEDS: CYMBALTA DELAYED RELEASE 40 MG PO (08:37)
[2025-06-12] MEDS: AZULFIDINE 1000 MG PO (08:37)
[2025-06-12] MEDS: RESTASIS 0.05% OPHTHALMIC EMULSION 1 DROPS BOTH EYES (08:37)
[2025-06-12] MEDS: MEDROL 4 MG PO (08:37)
[2025-06-12] MEDS: CLARITIN 10 MG PO (08:37)
[2025-06-12] MEDS: FOLVITE 1 MG PO (08:37)
[2025-06-12] MEDS: PROTONIX 40 MG PO (08:37)
[2025-06-12] MEDS: DESENEX/MITRAZOL/ZEASORB 1 APPLIC TOPICAL (08:38)
[2025-06-12] MEDS: VISBIOME 1 CAP PO (08:38)
[2025-06-12 10:32] LABS: Blood Urea Nitrogen 5 mg/dl (7-17); Calcium 9.2 mg/dl (8.4-10.2); Carbon Dioxide 26 mmol/L (22-30); Chloride 100 mmol/L (98-107); Estimated Creatinine Clearance 88 ml/min; Glucose 88 mg/dl (70-99); Potassium 4.3 mmol/L (3.5-5.1); Sodium 133 mmol/L (135-145); eGFR > 60.00
[2025-06-12 10:33] LABS: Hematocrit 38.3 % (37.0-47.0); Hemoglobin 12.5 g/dL (12.0-16.0); Mean Corp Hgb Conc. 32.6 g/dL (33.0-37.0); Mean Corpuscular Volume 93.2 fL (81.0-99.0); Nucleated Red Blood Cells % 0 %; Platelet Count 252 10^3/uL (130-400); Red Cell Dist. Width 14.8 % (11.5-14.5)
[2025-06-12 11:02] LABS: Cortisol, Random 9.4 ug/dl
--- NOTE | 2025-06-12 11:11 | W.PN.HOSP.TC ---
Today's Communication/Plan
-
dc Lasix
continue fluid restriction
repeat CBC/BMP in 1 week
f/u PCP and Nephrology
Assessment / Plan
Assessment / Plan
Assessment:
Pre-Syncope
- suspect vasovagal as preceded a bowel movement versus orthostatic as patient was standing in the shower, reports not eating breakfast
- Troponin undetectable; EKG sinus tachycardia @ 104, occasional PVC's
- s/p 2L IVF
- monitor telemetry, observation
- PT/OT - home/VN
- stop OPERATING COST CLERK Lasix
Acute on chronic hyponatremia
- reports 48 fluid restriction at home; also on Lasix
- stop Lasix
- 1500 cc OFR
- monitor AM BMP
Leukocytosis
Chills
- leukocytosis could be steroid related
- monitor CBC
- no fevers recorded, subjective chills
- CXR with possible PNA; procal negative
- Abdominal CT without acute finding in abdomen or pelvis
- UA negative
- COVID/Flu negative
- follow up blood cultures
- hold off on antibiotics for now
RA
- OPERATING COST CLERK Methylprednisolone (BP currently stable), Sulfasalazine
- patient has Voltaren and PRN Lidocaine patch for neck and knee pain
- gabapentin 1800mg qhs
Essential HTN - OPERATING COST CLERK Metoprolol
GERD - OPERATING COST CLERK PPI, Pepcid (lower dose to 20mg)
Overactive bladder - OPERATING COST CLERK Gemtesa, Solifenacin
constipation - change Miralax to PRN given report of loose stools
Depression/Anxiety
- OPERATING COST CLERK Duloxetine
- OPERATING COST CLERK Clonazepam qhs
HLD - OPERATING COST CLERK Statin
DVT ppx: Lovenox
Code: DNR/DNI
More than 30 minutes spent in discharge including
Final examination of the patient
Summarizing hospital stay
Instructions for continuing care to all relevant caregivers
Preparation of discharge records, prescriptions, and referral forms
Total time spent (in minutes): 41
Anticipated Discharge: Today
Subjective/Interval History
-
Date of Service: June 12, 2025
resting comfortably
no new complaints
Objective Data
-
Labs:
Laboratory Results
06/12/25
09:13
WBC 13.1 H
Hgb 12.5
Hct 38.3
Plt Count 252
Sodium 133 L
Potassium 4.3
Chloride 100
Carbon Dioxide 26
BUN 5 L
Creatinine 0.6
Glucose 88
Calcium 9.2
Vital Signs:
Vital Signs
Temp Pulse Resp BP Pulse Ox
97.7 F 86 20 152/98 97
06/12/25 07:28 06/12/25 07:28 06/12/25 07:28 06/12/25 07:28 06/12/25 07:28
I&O
06/11/25 06/12/25 06/13/25
06:59 06:59 06:59
Intake Total 675 / 675 720 / 720
Output Total 3900 / 3900 1950 / 1950
Balance -3225 / -3225 -1230 / -1230
Physical Exam
-
General: No Apparent Distress
HEENT: Normocephalic and Atraumatic
Respiratory: Negative Wheezes
Cardiac: Regular Rhythm and S1/S2
GI: Soft and Nontender
Neuro: AO x 3
Psych: Calm
Data Reviewed
-
Total Time Spent with Patient (in minutes): 41
Labs: Labs Reviewed by me
--- NOTE | 2025-06-12 11:21 | W.DCSUMMARY ---
Discharge Summary
Discharge Data
Date of Admission: 06/10/25
Date of Discharge: 06/12/25
-
Pending Results: No
Hospital Course
80 y/o F, hx of HTN, HLD, SVT, RA, anxiety/depression, GERD presented to ER with dizziness while showering. Initial concern was for infectious etiology with leukocytosis but workup was negative. Her leukocytosis was deemed likely from chronic
steroid use and a repeat CBC will be performed outpatient; if persistent patient will need hematology evaluation. She also had evidence of dehydration with acute on chronic hyponatremia therefore Lasix (+ potassium) was stopped and patient improved
with IVF. She was cleared for dc on 06/12/25 back to [facility] living with VN support. She will repeat CBC and BMP in 1 week with PCP And Nephrology follow up.
Discharge Plan
-
Patient Disposition: Home with Home Care
Discharge Diagnosis/Procedures: dizziness, hyponatremia possibly from dehydration, lasix stopped
Condition: Fair
Diet: Regular and Restrict fluids to 48 oz
Activity: As tolerated
Blood Work: repeat CBC and BMP in 1 week - script given.
Other Services: VN
Referrals:
Jose L Pelaez MD [Active, Nephrology] - in one to two weeks
Aparna Okeefe MD [Family Provider, [facility]] - in one to two weeks
Additional Discharge Medication Instructions: stop Lasix (+ potassium).
Prescriptions:
New
(DME) basic metabolic panel
See Rx Instructions .Route .MEDSUPPLY Qty: 1 0RF
Rx Instructions:
obtain in [address] Okeefe and Dr. Pelaez
(DME) complete blood count
See Rx Instructions .Route .MEDSUPPLY Qty: 1 0RF
Rx Instructions:
obtain in [address] Okeefe
Continued
clonazepam 0.5 MG tablet
0.5 mg PO HS
calcium carbonate 600 MG tablet
600 mg PO BID
metoprolol succinate [Toprol XL] 25 MG tablet extended release 24 hr
25 mg PO HS
cholecalciferol (vitamin D3) [Vitamin D3] 1,000 UNIT capsule
1,000 unit PO DAILY
Ure-Na 15 GM powder in packet
1 packet PO BID
sulfasalazine 500 mg Tablet
1,000 mg PO DAILY
polyethylene glycol 3350 17 gram Powder In Packet
17 g PO DAILY
methylprednisolone 4 mg Tablet
4 mg PO DAILY
acetaminophen 500 mg Tablet
1,000 mg PO Q6HPRN PRN (Reason: mild PAIN)
folic acid 1 mg Tablet
1 mg PO DAILY
loratadine 10 mg Tablet
10 mg PO DAILY
cyclosporine [Restasis] 0.05 % Dropperette
1 drp BOTH EYES Q12H
fluoride (sodium) [PreviDent 5000 Plus] 1.1 % Cream
1 applic DENTAL HS
Gemtesa 75 mg Tablet
75 mg PO DAILY
duloxetine 40 mg Capsule,Delayed Release(Dr/Ec)
40 mg PO BID
lansoprazole 30 mg Capsule,Delayed Release(Dr/Ec)
30 mg PO DAILY
fluticasone propionate 50 mcg/actuation [place],Suspension
2 spray INTRANASAL DAILY
solifenacin [Vesicare] 5 mg Tablet
5 mg PO DAILY
Visbiome 112.5 billion cell Capsule
1 cap PO DAILY
gabapentin 600 mg Tablet
1,800 mg PO HS
atorvastatin [Lipitor] 20 mg Tablet
20 mg PO QPM
famotidine [Heartburn Relief (famotidine)] 10 mg Tablet
10 mg PO BIDPRN PRN (Reason: gerd)
famotidine [Pepcid] 40 mg Tablet
40 mg PO HS
guaifenesin [Tussin] 100 mg/5 mL Liquid
100 mg PO Q6HPRN PRN (Reason: cough)
lidocaine 5 % Adhesive Patch,Medicated
1 patch TOPICAL DAILYPRN PRN (Reason: neck and/or left knee)
estradiol 0.01 % (0.1 mg/gram) Cream
1 appful VAGINAL MOTH
diclofenac sodium 1 % Gel
0 g TOPICAL Q6HPRN PRN (Reason: nack and/or left knee)
Wegovy 0.5 mg/0.5 mL Pen Injector
0.5 mg SC TH
Discontinued
furosemide [Lasix] 40 mg Tablet
40 mg PO DAILY
potassium chloride 20 MEQ tablet,ER particles/crystals
20 meq PO DAILY
Discharge Orders:
Discharge Patient (As Directed); Ordered 06/12/25
Ordered By: Damon Flores
Discharge Date and Time
Print Language: GEORGIAN
[2025-06-12 11:29] LABS: Glucose - Point of Care 92 mg/dl (70-99)
--- NOTE | 2025-06-12 11:50 | CM ---
Patient seen at bedside
discharge today to [place] - updated Boby at [place]
Called BENNETT Hernandez and updated
OBS status - form in chart
Plan: [place] with [facility]
report #: [phone] - ask for Boby
Fax #: [phone]
transportation forms on chart, patient request ambulance - 1:30 transport
--- NOTE | 2025-06-12 11:53 | PTCARENOTE ---
Pt tachy on ambulation 100's-120's. MÁRQUEZ. Pt back in bed, HR decreased to 90's-100's. made aware.
[2025-06-12 12:01] VITALS: BP 104/54
== END 2025-06-12 13:42 | disposition home health service (06) ==
LOC: 3 WEST ACU 15:37
PROVIDERS: ADMITTING PHYSICIAN Student in an Organized Health Care Education/Training Program; ATTENDING PHYSICIAN Internal Medicine; EMERGENCY PHYSICIAN Student in an Organized Health Care Education/Training Program; FAMILY PHYSICIAN Family Medicine
DX: E87.1 Hypo-osmolality and hyponatremia (principal); R55 Syncope and collapse; E86.0 Dehydration; R42 Dizziness and giddiness; D72.829 Elevated white blood cell count, unspecified; F32.A Depression, unspecified; F41.9 Anxiety disorder, unspecified; I10 Essential (primary) hypertension; K21.9 Gastro-esophageal reflux disease without esophagitis; M06.9 Rheumatoid arthritis, unspecified; N32.81 Overactive bladder; K59.00 Constipation, unspecified; E78.5 Hyperlipidemia, unspecified; Z66 Do not resuscitate; Z11.52 Encounter for screening for COVID-19; Z79.899 Other long term (current) drug therapy; Z87.891 Personal history of nicotine dependence
CPT/HCPCS: 51701; 71046; 74176; 80048; 80053; 81003; 81015; 82533; 82962; 83605; 83735; 83930; 83935; 84145; 84300; 84443; 84484; 85025; 86850; 86900; 86901; 87040; 87070; 87502; 87811; 93005; 96360; 96361; 97163; 97167; 99285; G0378

== ENCOUNTER → 2025-06-15 12:10 | Outpatient (REF) | payer MEDICARE, BC, OTHER, SELFPAY ==
[2025-06-15 12:34] LABS: Hematocrit 34.6 % (37.0-47.0); Hemoglobin 11.3 g/dL (12.0-16.0); Mean Corp Hgb Conc. 32.7 g/dL (33.0-37.0); Mean Corpuscular Volume 91.8 fL (81.0-99.0); Nucleated Red Blood Cells % 0 %; Platelet Count 263 10^3/uL (130-400); Red Cell Dist. Width 14.8 % (11.5-14.5)
[2025-06-15 12:52] LABS: Blood Urea Nitrogen 30 mg/dl (7-17); Calcium 9.3 mg/dl (8.4-10.2); Carbon Dioxide 28 mmol/L (22-30); Chloride 97 mmol/L (98-107); Glucose 93 mg/dl (70-99); Potassium 4.2 mmol/L (3.5-5.1); Sodium 127 mmol/L (135-145); eGFR > 60.00
== END ==
LOC: OLABLV 12:10
PROVIDERS: ATTENDING PHYSICIAN Internal Medicine; FAMILY PHYSICIAN Family Medicine
DX: I10 Essential (primary) hypertension (principal); E87.1 Hypo-osmolality and hyponatremia; M06.9 Rheumatoid arthritis, unspecified
CPT/HCPCS: 36415; 80048; 85025

== ENCOUNTER → 2025-06-22 10:41 | Outpatient (REF) | payer MEDICARE, BC, OTHER, SELFPAY ==
[2025-06-22 13:49] LABS: Blood Urea Nitrogen 30 mg/dl (7-17); Calcium 9.3 mg/dl (8.4-10.2); Carbon Dioxide 29 mmol/L (22-30); Chloride 97 mmol/L (98-107); Glucose 84 mg/dl (70-99); Potassium 4.6 mmol/L (3.5-5.1); Sodium 129 mmol/L (135-145); eGFR > 60.00
== END ==
LOC: OLABLV 10:41
PROVIDERS: ATTENDING PHYSICIAN Family Medicine
DX: E87.1 Hypo-osmolality and hyponatremia (principal)
CPT/HCPCS: 36415; 80048

== ENCOUNTER 2025-06-23 11:12 | Emergency (ER) | payer MEDICARE, BC, OTHER, SELFPAY ==
[2025-06-23 11:22] VITALS: BP 124/83
[2025-06-23 11:23] VITALS: BMI 36.1
[2025-06-23 11:24] VITALS: BP 124/83
--- NOTE | 2025-06-23 11:29 | ED.GENMED ---
History of Present Illness
General
Chief Complaint: Fall
Source: patient and ambulance crew
Time Seen by Provider: 06/23/25 11:25
History of Present Illness
History of Present Illness:
This patient is a 80-year-old female who had a fall x 2 today. She says she just 'lost my balance', without associated dizziness, chest pain, dyspnea, headache, or other complaints. As per EMS they were called the first time she fell for a 'lift
assist'. At that time she did not have any complaints and no injuries were noted. Then, within an hour, patient was in an office and backed out backwards, causing her to lose her balance, and she fell down. She did hit her head but there was no
loss of conscious. Patient is not on anticoagulation. She did suffer a laceration to the right lower extremity, otherwise no injury. Patient is unaware of her tetanus status. She denies numbness, tingling, focal weakness, change in vision, chest
pain, shortness of breath, abdominal pain, neck pain. She does have a very mild headache.
Past History
Past History
ED Past Medical History: Arrthythmia (Per pt- SVT on Digoxin), Cancer (Uterine cancer), GERD, HTN, Hypercholesterolemia, Psychiatric (Depression, anxiety) and Other (RA, Back and neck pain, Overactive bladder, )
ED Past Surgical History: Appendectomy, Orthopedic (Sim bunion repair, Sim knee replacement, Right foot Pins, Bilateral shoulder replacement, ), Tonsilectomy (and adenoids) and Other
Social History
Tobacco: Former smoker
Alcohol: Daily (Wine 1 glass)
Drug: None
Personal:
Living: custodial
Phy Exam
Physical Exam
Physical Exam:
GENERAL: Alert , in no apparent distress
EYE: pupils equal and reactive, EOMI, no nystagmus, no photophobia
NECK: Supple, no significant adenopathy, no midline tenderness.
ENT: o/p clr, mmm, no signs of head or facial injury, no gresham, no raccoon.
CARDIAC: Regular rate and rhythm .
LUNGS: Clear breath sounds bilaterally, no acute respiratory distress, no wheezes/rales/rhonchi
ABDOMEN: Soft, without focal tenderness, no r/g, no cvat
NEUROLOGICAL: Alert and oriented, no focal neuro deficits, motor 5 out of 5, sensory intact, [id number] normal, cranial nerves II through XII intact
SKIN: Warm and dry, L shaped laceration noted at the lateral aspect of the right lower leg to the level of soft tissue
MUSCULOSKELETAL: No edema, well perfused.
PSYCH: Normal and appropriate interaction.
Course
Orders/Labs/Results
Orders:
Orders
06/23/25 11:25
Tetanus/Diphth/Acelpertussis [Adacel] 0.5 ml IM .ONCE ONE
06/23/25 11:26
CT Head W/o Iv Contrast Urgent
Comment:
Reason For Exam: head injury
06/23/25 11:28
Complete Blood Count/No Diff Urgent
Comprehensive Metabolic Panel Urgent
06/23/25 13:28
Electrocardiogram (*1) Urgent
Reason for Study: Other
Other Reason for Exam: fall
EKG- Treatment ONCE
Tetanus/Diphth/Acelpertussis [Adacel] 0.5 ml .ROUTE .STK-MED ONE
Abnormal Lab Results
06/23/25
11:28
RBC 4.02 L 10^6/uL
(4.20-5.40)
MCHC 31.8 L g/dL
(33.0-37.0)
Sodium 130 L mmol/L
(135-145)
Chloride 97 L mmol/L
(98-107)
Carbon Dioxide 31 H mmol/L
(22-30)
BUN 34 H mg/dl
(7-17)
06/23/25 11:28
06/23/25 11:28
Vital Signs
Initial and Last Documented VS:
Initial Vital Signs
Temp Pulse Resp Pulse Ox
97.7 F 55 18 95
06/23/25 11:15 06/23/25 11:15 06/23/25 11:15 06/23/25 11:15
Last Documented Vital Signs
Temp Pulse Resp BP Pulse Ox
97.7 F 55 18 119/69 96
06/23/25 11:15 06/23/25 11:15 06/23/25 11:15 06/23/25 12:00 06/23/25 12:00
Procedures
Laceration Closure
Right Leg:
Status of Wound: clean
Size of Wound in cm: 6
Description of Wound Edges: sharp
Preparation: cleaned with saline
Anesthesia: 1% Lidocaine with epi
Revision/Debridement: routine- no revision
Wound exploration: explored to base- no FB
Type of Closure: single layer closure
Skin Closure Material: 4-0 nylon
Number of sutures: 11
*Pulse Oximetry
SaO2: 98
Oxygen Mode of Delivery: Room air
Patient hypoxic: no
*Critical Care Note
Total Time (30-74mins, 75-104mins- exclusive of procedures): Not Applicable
Update Note
Update Note:
Patient presents to the Emergency Department with fall x 2
Number and Complexity of Problems Addressed at the Encounter
� Chronic conditions affecting care:
� Acute Exacerbation and/or Progression of Chronic Illness:
� Differential Diagnosis includes: But not limited to intracranial bleed, electrolyte abnormality, dehydration, etc. etc.
Amount and/or Complexity of Data to be Reviewed and Analyzed
� I performed an independent evaluation of and my interpretation is:
EKG: Read by me, normal sinus rhythm, first-degree block, no acute ischemia
CT:No intracranial hemorrhage, and no displaced skull fracture appreciated.
2. Mild atrophy. Moderate chronic small vessel change.
3. No significant change compared to prior study.
Xrays:
Laboratory Studies: Mild hyponatremia but improved from prior, hemoglobin stable
Other:
� Review of other/old records reveals: Discharge summary from patient's recent hospitalization reviewed she was in the hospital June 10 through the with dizziness while showering, noted to have a nonspecific leukocytosis
thought to be related to chronic steroid use. She also was noted to have mild hyponatremia with dehydration.
� Clinical information was obtained by an independent historian:
� Prescriptions/Medications Considered but not given:
� Further testing considered but not performed:
Risk of Complications and/or Morbidity or Mortality of Patient Management
� Social determinants of health affecting care:
� Discussion with other providers (PCP, Hospitalists, Consultants, etc):
� Escalation of care including admission/observation vs risk of discharge considered: Workup generally unremarkable here, patient stable. Wound was repaired. Of note, patient has had recent falls which she states is related to
just losing her balance and denies symptoms to suggest a neurocardiogenic cause. She lives in an assisted living facility. I recommend that she have a PT evaluation here before discharge which she declines. Discussed with patient importance of
follow-up and reasons return to the ER. She is compliant with using her walker
ED Attending Note
-
Portions of this chart may have been created with voice recognition software.� Occasional wrong word or��sound alike� substitutions may have occurred due to the inherent limitations of voice recognition software.
Discharge Plan
Departure
Patient Disposition: Home (Routine Discharge)
Date of Disposition: 06/23/25
Time of Disposition: 13:50
Patient with high blood pressure during this ER visit?: Yes
Condition: Good
Discharge Problem:
Laceration, Fall
Instructions: Head Injury in Adults (DC), Laceration Repair With Stitches (DC), Preventing falls in adults, BLOOD PRESSURE
Prescriptions:
No Action
clonazepam 0.5 MG tablet
0.5 mg PO HS
calcium carbonate 600 MG tablet
600 mg PO BID
metoprolol succinate [Toprol XL] 25 MG tablet extended release 24 hr
25 mg PO HS
cholecalciferol (vitamin D3) [Vitamin D3] 1,000 UNIT capsule
1,000 unit PO DAILY
Ure-Na 15 GM powder in packet
1 packet PO BID
sulfasalazine 500 mg Tablet
1,000 mg PO DAILY
polyethylene glycol 3350 17 gram Powder In Packet
17 g PO DAILY
methylprednisolone 4 mg Tablet
4 mg PO DAILY
acetaminophen 500 mg Tablet
1,000 mg PO Q6HPRN PRN (Reason: mild PAIN)
folic acid 1 mg Tablet
1 mg PO DAILY
loratadine 10 mg Tablet
10 mg PO DAILY
cyclosporine [Restasis] 0.05 % Dropperette
1 drp BOTH EYES Q12H
fluoride (sodium) [PreviDent 5000 Plus] 1.1 % Cream
1 applic DENTAL HS
Gemtesa 75 mg Tablet
75 mg PO DAILY
duloxetine 40 mg Capsule,Delayed Release(Dr/Ec)
40 mg PO BID
lansoprazole 30 mg Capsule,Delayed Release(Dr/Ec)
30 mg PO DAILY
fluticasone propionate 50 mcg/actuation [place],Suspension
2 spray INTRANASAL DAILY
solifenacin [Vesicare] 5 mg Tablet
5 mg PO DAILY
Visbiome 112.5 billion cell Capsule
1 cap PO DAILY
gabapentin 600 mg Tablet
1,800 mg PO HS
atorvastatin [Lipitor] 20 mg Tablet
20 mg PO QPM
famotidine [Heartburn Relief (famotidine)] 10 mg Tablet
10 mg PO BIDPRN PRN (Reason: gerd)
famotidine [Pepcid] 40 mg Tablet
40 mg PO HS
guaifenesin [Tussin] 100 mg/5 mL Liquid
100 mg PO Q6HPRN PRN (Reason: cough)
lidocaine 5 % Adhesive Patch,Medicated
1 patch TOPICAL DAILYPRN PRN (Reason: neck and/or left knee)
estradiol 0.01 % (0.1 mg/gram) Cream
1 appful VAGINAL MOTH
diclofenac sodium 1 % Gel
0 g TOPICAL Q6HPRN PRN (Reason: nack and/or left knee)
Wegovy 0.5 mg/0.5 mL Pen Injector
0.5 mg SC TH
(DME) basic metabolic panel
See Rx Instructions .Route .MEDSUPPLY Qty: 1 0RF
Rx Instructions:
obtain in [address] Okeefe and Dr. Pelaez
(DME) complete blood count
See Rx Instructions .Route .MEDSUPPLY Qty: 1 0RF
Rx Instructions:
obtain in [address] Okeefe
Referrals:
Aparna Okeefe MD [Family Provider, Family Practice] - Follow up in 2-3 days
Activity Restrictions/Additional Instructions:
YOU HAD 11 SUTURES PLACED IN YOUR RIGHT LOWER EXTREMITY. THESE NEED TO BE REMOVED IN APPROXIMATELY 10 DAYS. IF YOU DEVELOP FEVER, NECK PAIN, SEVERE HEADACHE, NUMBNESS, TINGLING, WEAKNESS, CHANGE IN VISION, CHANGE IN SPEECH, CHEST PAIN, SHORTNESS
OF BREATH, OR OTHER WORRISOME SIGNS, PLEASE RETURN TO THE ER IMMEDIATELY!
Interventions
Interventions:
*Risk Screen - Suicide Last Done: 06/23/25 11:24
*General Assessment Last Done: 06/23/25 12:00
*Neglect/Abuse Screening Last Done: 06/23/25 11:24
*ED COVID-19 Vaccine History Last Done: 06/23/25 13:45
*ED Influenza Vaccine History Last Done: 06/23/25 13:45
ED- Neurological Assessment Last Done: 06/23/25 11:18
ED-Skin Assessment Last Done: 06/23/25 12:00
Discharge Date and Time
Print Language: [email or web address]
[2025-06-23 11:35] LABS: Hematocrit 38.7 % (37.0-47.0); Hemoglobin 12.3 g/dL (12.0-16.0); Mean Corp Hgb Conc. 31.8 g/dL (33.0-37.0); Mean Corpuscular Volume 96.3 fL (81.0-99.0); Platelet Count 288 10^3/uL (130-400); Red Cell Dist. Width 14.3 % (11.5-14.5)
[2025-06-23 11:54] LABS: ALT (SGPT) 14 U/L (0-35); AST (SGOT) 20 U/L (14-36); Albumin 4.0 g/dl (3.5-5.0); Alkaline Phosphatase 56 U/L (38-126); Blood Urea Nitrogen 34 mg/dl (7-17); Calcium 9.4 mg/dl (8.4-10.2); Carbon Dioxide 31 mmol/L (22-30); Chloride 97 mmol/L (98-107); Estimated Creatinine Clearance 88 ml/min; Glucose 90 mg/dl (70-99); Potassium 4.5 mmol/L (3.5-5.1); Sodium 130 mmol/L (135-145); Total Protein 6.9 g/dl (6.3-8.2); eGFR > 60.00
[2025-06-23 12:00] VITALS: BP 119/69
[2025-06-23] MEDS: ADACEL 0.5 ML IM (13:29)
== END 2025-06-23 15:30 ==
LOC: EMR 11:12
PROVIDERS: EMERGENCY PHYSICIAN Emergency Medicine; FAMILY PHYSICIAN Family Medicine
DX: S81.811A Laceration without foreign body, right lower leg, initial encounter (principal); S09.90XA Unspecified injury of head, initial encounter; W18.30XA Fall on same level, unspecified, initial encounter; E78.00 Pure hypercholesterolemia, unspecified; I10 Essential (primary) hypertension; I44.0 Atrioventricular block, first degree; Z87.891 Personal history of nicotine dependence; Z96.653 Presence of artificial knee joint, bilateral; Z96.612 Presence of left artificial shoulder joint; Z96.611 Presence of right artificial shoulder joint; Z23 Encounter for immunization
CPT/HCPCS: 90471; 12002; 99284; 70450; 80053; 85027; 90715; 93005